=== PATIENT | female | born 1995 | race Caucasian/White ===

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

== ENCOUNTER 2017-04-03 15:41 | Emergency (ER) | payer BC ==
[2017-04-03 15:52] VITALS: BP 132/63
--- NOTE | 2017-04-03 15:55 | UC ---
Complaint Female HPI - HPI Summary HPI Summary: 22 year old female presents with complains of urine frequency/urgency. - History Of Current Complaint Chief Complaint: UCGU Stated Complaint: UTI Time Seen by Provider: 04/03/17 15:54 Hx Obtained From: Patient Hx Last Menstrual Period: 03/16/2017 Onset/Duration: Sudden Onset Timing: Constant Severity Initially: Moderate Severity Currently: Moderate - Allergies/Home Medications Allergies/Adverse Reactions: Allergies Allergy/AdvReac Type Severity Reaction Status Date / Time Amoxicillin Allergy Hives Verified 04/03/17 15:47 Sulfa Antibiotics Allergy Hives Verified 04/03/17 15:47 PMH/Surg Hx/FS Hx/Imm Hx Previously Healthy: Yes Other History Of: Negative For: HIV, Hepatitis B, Hepatitis C, Anticoagulant Therapy - Surgical History Surgical History: Yes Surgery Procedure, Year, and Place: LEFT ELBOW RECON, TUBES IN EARS, ELBOW PINS , RIGHT 5TH FINGER SURGERY - Family History Known Family History: Positive: Cardiac Disease, Hypertension, Diabetes, Respiratory Disease - Social History Alcohol Use: None Substance Use Type: None Smoking Status (MU): Light Every Day Tobacco Smoker Type: Cigarettes Amount Used/How Often: 4 CIG/DAY Have You Smoked in the Last Year: No Household Exposure Type: Cigarettes - Immunization History Most Recent Influenza Vaccination: Vaccination Up to Date: Yes Review of Systems Constitutional: Negative Skin: Negative Eyes: Negative ENT: Negative Respiratory: Negative Cardiovascular: Negative Gastrointestinal: Negative Genitourinary: Dysuria, Frequency, Urgency Motor: Negative Neurovascular: Negative Musculoskeletal: Negative Neurological: Negative Psychological: Negative All Other Systems Reviewed And Are Negative: Yes Physical Exam Triage Information Reviewed: Yes Vital Signs: Initial Vital Signs Temp 36.8 C 04/03/17 15:48 Pulse 100 04/03/17 15:48 Resp 16 04/03/17 15:48 BP 132/63 04/03/17 15:48 Pulse Ox 100 04/03/17 15:48 Eye Exam: Normal ENT Exam: Normal Dental Exam: Normal Neck exam: Normal Neck: Positive: 1 Respiratory Exam: Normal Cardiovascular Exam: Normal Abdominal Exam: Normal Musculoskeletal Exam: Normal Neurological Exam: Normal Psychological Exam: Normal Skin Exam: Normal Complaint Female Dx - Differential Dx/Diagnosis Provider Diagnoses: urinary frequnecy. urinary urgency. dysuria Discharge - Discharge Plan Condition: Stable Disposition: HOME Prescriptions: Nitrofurantoin Monohyd Macro [Macrobid] 100 mg PO BID #14 cap Patient Education Materials: Urinary Tract Infection in Women (ED), Dysuria (ED ) Referrals: Mehul Grewal MD [Primary Care Provider] -
--- NOTE | 2017-04-05 16:30 | ED ---
Progress - Progress Note Progress Note: UCX (-). CAN STOP ABX. Course/Dx - Diagnoses Provider Diagnoses: Dysuria
== END 2017-04-03 16:15 | disposition home or self-care (01) ==
LOC: UCEAST 15:41
DX: R30.0 Dysuria (principal); R35.0 Frequency of micturition; R39.15 Urgency of urination; Z32.02 Encounter for pregnancy test, result negative; F17.210 Nicotine dependence, cigarettes, uncomplicated; Z88.1 Allergy status to other antibiotic agents; Z88.0 Allergy status to penicillin
CPT/HCPCS: 81003; 84702; 87086; 99212; G0463

== ENCOUNTER 2017-07-11 10:16 | Emergency (ER) | payer BC ==
[2017-07-11] MEDS ORDERED: Ketorolac INJ* 30 MG/ML 1 ML VIAL IV PUSH ONE (13:09)
[2017-07-11] MEDS ORDERED: NS 0.9% 1000 ML* 1,000 ML IV ONE (13:09)
[2017-07-11 13:12] LABS: ABS Basophils 0 10^3/ul (0-0.2); ABS Eosinophils 0 10^3/ul (0-0.6); ABS Lymphocytes 1.9 10^3/ul (1.0-4.8); ABS Monocytes 0.5 10^3/ul (0-0.8); ABS Neutrophils 5.8 10^3/ul (1.5-7.7); ABS Nucleated RBC 0 10^3/ul; Eosinophil % 0.4 % (0-6); Hematocrit 40 % (35-47); Hemoglobin 13.6 g/dl (12.0-16.0); Lymphocyte % 23.1 % (25-47); Mean Corpuscular HGB Conc 34 g/dl (31-36); Mean Corpuscular Hemoglobin 29 pg (27-31); Mean Corpuscular Volume 85 fL (80-97); Mean Platelet Volume 8 um3 (7.4-10.4); Nucleated Red Blood Cells % 0; Platelet Count 306 10^3/ul (150-450); Red Blood Count 4.75 10^6/ul (4.0-5.4); Red Cell Distribution Width 13 % (10.5-15); White Blood Count 8.2 10^3/ul (3.5-10.8)
[2017-07-11 13:25] LABS: EGFR Non-African American 122.7 (>60)
[2017-07-11 13:31] LABS: INR 1.02 (0.77-1.02)
[2017-07-11 13:48] LABS: Urine Appearance Cloudy; Urine Blood Negative (Negative); Urine Color Yellow; Urine Ketones Trace (Negative); Urine Protein Negative (Negative); Urine Specific Gravity 1.019 (1.010-1.030); Urine Urobilinogen Negative (Negative)
[2017-07-11] MEDS ORDERED: Ondansetron INJ* 2 MG/ML VIAL IV ONE (15:04)
--- NOTE | 2017-07-11 15:22 | RAD ---
INDICATION: Right-sided pelvic pain. COMPARISON: Comparison is made with a prior CT of the abdomen and pelvis from October 14, 2005. TECHNIQUE: Multiple real-time transabdominal and transvaginal images of the pelvis were obtained. FINDINGS: The uterus is normal in size, shape and echogenicity. The uterus measured 6.1 x 3.6 x 4.1 cm. The endometrial echo measured 1.0 cm in thickness. The right ovary measured 4.0 x 2.6 x 2.2 cm. The left ovary is not visualized. There is a complex cystic and solid mass in the left adnexa measuring 10.0 x 9.0 x 10.8 cm. No free intraperitoneal fluid is seen. IMPRESSION: THERE IS A COMPLEX CYSTIC AND SOLID MASS PRESENT IN THE LEFT ADNEXAL REGION MEASURING UP TO 10.8 CM IN SIZE. RECOMMEND A CT OF THE ABDOMEN AND PELVIS WITH INTRAVENOUS AND ORAL CONTRAST.
[2017-07-11] MEDS ORDERED: Iohexol 300* (CONTRAST) 10 ML SDV IV ONE (15:54)
--- NOTE | 2017-07-11 18:15 | RAD ---
Indication: Pelvic pain. Contrast:Administered 145.2 ml of OMNIPAQUE 300 mg/ml CT of the abdomen and pelvis was performed after oral and IV contrast administration. Coronal and sagittal reconstructed images were obtained. Lung bases demonstrate no pleural fluid, nodules or masses. Heart is of normal size without evidence of pericardial effusion. Liver is normal in size. No focal lesions or intrahepatic ductal dilatation is noted. The gallbladder demonstrates no calcified gallstones. No pericholecystic fluid or wall thickening is identified. Spleen is normal in size. No adrenal lesions are noted. The kidneys demonstrate symmetric nephrograms without focal lesions. No retroperitoneal adenopathy is noted. Aorta and inferior vena cava are unremarkable. No dilated loops of bowel are noted. No hernias are noted. CT of the pelvis demonstrates normal appendix. No dilated loops of bowel are noted. There is a large left adnexal mass measuring 7.4 cm in length x 9.7 cm AP x 9.1 cm in width. There is a fluid component of fat component and a calcium component. Findings are consistent with a dermoid cyst. Urinary bladder is unremarkable. No hernias are noted. IMPRESSION: 7.4 x 9.7 x 9.1 cm mass in the left adnexa with fatty components, calcium components and probable solid components. Findings are consistent with a dermoid.
[2017-07-11 19:15] VITALS: BP 124/68
--- NOTE | 2017-07-13 07:43 | ED ---
Anup Jimenez Angela, scribed for Saurav Angelo MD on 07/11/17 at 1312 . Abdominal Pain/Female - HPI Summary HPI Summary: This pt is a 22 y/o female presenting to [facility] c/o RLQ abd pain upon waking up this morning at around 07:00. Pt notes associated nausea and diarrhea. She denies vomiting. Pt describes diarrhea as watery stool. LMP: June 20 2017. - History of Current Complaint Chief Complaint: EDAbdPain Stated Complaint: RT SIDED ABD PAIN Time Seen by Provider: 07/11/17 12:54 Hx Obtained From: Patient Hx Last Menstrual Period: 06/20/17 Onset/Duration: Lasting Hours, Still Present Timing: Hours Severity Currently: Moderate Pain Intensity: 5 Pain Scale Used: 0-10 Numeric Location: Discrete At: RLQ Radiates: No Aggravating Factor(s): Nothing Alleviating Factor(s): Nothing Associated Signs and Symptoms: Positive: Nausea, Diarrhea. Negative: Vomiting Allergies/Adverse Reactions: Allergies Allergy/AdvReac Type Severity Reaction Status Date / Time Amoxicillin Allergy Hives Verified 07/11/17 12:40 Sulfa Antibiotics Allergy Hives Verified 07/11/17 12:40 PMH/Surg Hx/FS Hx/Imm Hx Endocrine/Hematology History: Denies: Hx Anticoagulant Therapy, Hx Diabetes, Hx Thyroid Disease Cardiovascular History: Denies: Hx Hypertension, Hx Pacemaker/ICD Respiratory History: Reports: Hx Asthma Denies: Hx Chronic Obstructive Pulmonary Disease (COPD), Hx Lung Cancer, Hx Pneumonia, Hx Pulmonary Embolism GI History: Denies: Hx Gall Bladder Disease, Hx Gastrointestinal Bleed, Hx Ulcer, Hx Urosepsis History: Denies: Hx Kidney Stones, Hx Renal Disease Sensory History: Denies: Hx Hearing Aid Neurological History: Denies: Hx Dementia, Hx Migraine, Hx Seizures, Hx Transient Ischemic Attacks (TIA) Psychiatric History: Reports: Hx Anxiety, Hx Depression - No treatment. Denies: Hx Panic Disorder, Hx Schizophrenia, Hx Bipolar Disorder - Surgical History Surgery Procedure, Year, and Place: LEFT ELBOW RECON, TUBES IN EARS, ELBOW PINS , RIGHT 5TH FINGER SURGERY Infectious Disease History: No Infectious Disease History: Denies: Hx Clostridium Difficile, Hx Hepatitis, Hx Human Immunodeficiency Virus (HIV), Hx of Known/Suspected MRSA, Hx Shingles, Hx Tuberculosis, Hx Known/ Suspected VRE, Hx Known/Suspected VRSA, History Other Infectious Disease, Traveled Outside the [place] in Last 30 Days - Family History Known Family History: Positive: Cardiac Disease, Hypertension, Diabetes, Respiratory Disease - Social History Alcohol Use: None Hx Substance Use: No Substance Use Type: Reports: None Hx Tobacco Use: Yes Smoking Status (MU): Light Every Day Tobacco Smoker Type: Cigarettes Amount Used/How Often: 4 CIG/DAY Have You Smoked in the Last Year: No Review of Systems Negative: Fever, Chills Eyes: Negative ENT: Negative Cardiovascular: Negative Positive: Abdominal Pain, Diarrhea, Nausea. Negative: Vomiting All Other Systems Reviewed And Are Negative: Yes Physical Exam - Summary Physical Exam Summary: VITAL SIGNS: Reviewed. GENERAL: Patient is a well-developed and nourished female who is lying comfortable in the stretcher. Patient is not in any acute respiratory distress. HEAD AND FACE: No signs of trauma. No ecchymosis, hematomas or skull depressions. No sinus tenderness. EYES: PERRLA, EOMI x 2, No injected conjunctiva, no nystagmus. EARS: Hearing grossly intact. Ear canals and tympanic membranes are within normal limits. MOUTH: Oropharynx within normal limits. NECK: Supple, trachea is midline, no adenopathy, no JVD, no carotid bruit, no c- spine tenderness, neck with full ROM. CHEST: Symmetric, no tenderness at palpation LUNGS: Clear to auscultation bilaterally. No wheezing or crackles. CVS: Regular rate and rhythm, S1 and S2 present, no murmurs or gallops appreciated. ABDOMEN: Soft, non-tender. No signs of distention. No masses palpated. Bowel sounds are normal. Right pelvic tenderness. Slight RLQ tenderness without rebound or guarding. EXTREMITIES: FROM in all major joints, no edema, no cyanosis or clubbing. NEURO: Alert and oriented x 3. No acute neurological deficits. Speech is normal and follows commands. SKIN: Dry and warm Triage Information Reviewed: Yes Vital Signs On Initial Exam: Initial Vitals Temp Pulse Resp BP Pulse Ox 98.6 F 102 20 133/74 98 07/11/17 10:36 07/11/17 10:36 07/11/17 10:36 07/11/17 10:36 07/11/17 10:36 Vital Signs Reviewed: Yes Diagnostics - Vital Signs Vital Signs Temp Pulse Resp BP Pulse Ox 07/11/17 10:36 98.6 F 102 20 133/74 98 - Laboratory Lab Results: Lab Results 07/11/17 07/11/17 07/11/17 Range/Units 12:56 12:56 12:56 WBC 8.2 (3.5-10.8) 10^3/ul RBC 4.75 (4.0-5.4) 10^6/ul Hgb 13.6 (12.0-16.0) g/dl Hct 40 (35-47) % MCV 85 (80-97) fL MCH 29 (27-31) pg MCHC 34 (31-36) g/dl RDW 13 (10.5-15) % Plt Count 306 (150-450) 10^3/ul MPV 8 (7.4-10.4) um3 Neut % (Auto) 70.4 (38-83) % Lymph % (Auto) 23.1 L (25-47) % [place] % (Auto) 5.7 (1-9) % Eos % (Auto) 0.4 (0-6) % Baso % (Auto) 0.4 (0-2) % Absolute Neuts (auto) 5.8 (1.5-7.7) 10^3/ul Absolute Lymphs (auto) 1.9 (1.0-4.8) 10^3/ul Absolute Monos (auto) 0.5 (0-0.8) 10^3/ul Absolute Eos (auto) 0 (0-0.6) 10^3/ul Absolute Basos (auto) 0 (0-0.2) 10^3/ul Absolute Nucleated RBC 0 10^3/ul Nucleated RBC % 0 INR (Anticoag Therapy) 1.02 (0.77-1.02) Sodium 136 (133-145) mmol/L Potassium 3.9 (3.5-5.0) mmol/L Chloride 104 (101-111) mmol/L Carbon Dioxide 24 (22-32) mmol/L Anion Gap 8 (2-11) mmol/L BUN 8 (6-24) mg/dL Creatinine 0.62 (0.51-0.95) mg/dL Est GFR ( Amer) 157.8 (>60) Est GFR (Non-Af Amer) 122.7 (>60) BUN/Creatinine Ratio 12.9 (8-20) Glucose 83 (70-100) mg/dL Lactic Acid (0.5-2.0) mmol/L Calcium 9.9 (8.6-10.3) mg/dL Magnesium 2.6 (1.9-2.7) mg/dL Total Bilirubin 0.40 (0.2-1.0) mg/dL AST 14 (13-39) U/L ALT 14 (7-52) U/L Alkaline Phosphatase 70 (34-104) U/L Total Creatine Kinase 41 (10-223) U/L C-Reactive Protein 5.35 H (< 5.00) mg/L Total Protein 7.1 (6.4-8.9) g/dL Albumin 4.1 (3.2-5.2) g/dL Globulin 3.0 (2-4) g/dL Albumin/Globulin Ratio 1.4 (1-3) Amylase 31 (29-103) U/L Lipase < 10 L (11.0-82.0) U/L Beta HCG, Quant < 0.60 mIU/mL Urine Color Urine Appearance Urine pH (5-9) Ur Specific [place] (1.010-1.030) Urine Protein (Negative) Urine Ketones (Negative) Urine Blood (Negative) Urine Nitrate (Negative) Urine Bilirubin (Negative) Urine Urobilinogen (Negative) Ur Leukocyte Esterase (Negative) Urine Glucose (Negative) 07/11/17 07/11/17 07/11/17 Range/Units 12:56 13:34 16:54 WBC (3.5-10.8) 10^3/ul RBC (4.0-5.4) 10^6/ul Hgb (12.0-16.0) g/dl Hct (35-47) % MCV (80-97) fL MCH (27-31) pg MCHC (31-36) g/dl RDW (10.5-15) % Plt Count (150-450) 10^3/ul MPV (7.4-10.4) um3 Neut % (Auto) (38-83) % Lymph % (Auto) (25-47) % [place] % (Auto) (1-9) % Eos % (Auto) (0-6) % Baso % (Auto) (0-2) % Absolute Neuts (auto) (1.5-7.7) 10^3/ul Absolute Lymphs (auto) (1.0-4.8) 10^3/ul Absolute Monos (auto) (0-0.8) 10^3/ul Absolute Eos (auto) (0-0.6) 10^3/ul Absolute Basos (auto) (0-0.2) 10^3/ul Absolute Nucleated RBC 10^3/ul Nucleated RBC % INR (Anticoag Therapy) (0.77-1.02) Sodium (133-145) mmol/L Potassium (3.5-5.0) mmol/L Chloride (101-111) mmol/L Carbon Dioxide (22-32) mmol/L Anion Gap (2-11) mmol/L BUN (6-24) mg/dL Creatinine (0.51-0.95) mg/dL Est GFR ( Amer) (>60) Est GFR (Non-Af Amer) (>60) BUN/Creatinine Ratio (8-20) Glucose (70-100) mg/dL Lactic Acid 0.7 0.8 (0.5-2.0) mmol/L Calcium (8.6-10.3) mg/dL Magnesium (1.9-2.7) mg/dL Total Bilirubin (0.2-1.0) mg/dL AST (13-39) U/L ALT (7-52) U/L Alkaline Phosphatase (34-104) U/L Total Creatine Kinase (10-223) U/L C-Reactive Protein (< 5.00) mg/L Total Protein (6.4-8.9) g/dL Albumin (3.2-5.2) g/dL Globulin (2-4) g/dL Albumin/Globulin Ratio (1-3) Amylase (29-103) U/L Lipase (11.0-82.0) U/L Beta HCG, Quant mIU/mL Urine Color Yellow Urine Appearance Cloudy Urine pH 5.0 (5-9) Ur Specific [place] 1.019 (1.010-1.030) Urine Protein Negative (Negative) Urine Ketones Trace H (Negative) Urine Blood Negative (Negative) Urine Nitrate Negative (Negative) Urine Bilirubin Negative (Negative) Urine Urobilinogen Negative (Negative) Ur Leukocyte Esterase Negative (Negative) Urine Glucose Negative (Negative) Result Diagrams: 07/11/17 12:56 07/11/17 12:56 Lab Statement: Any lab studies that have been ordered have been reviewed, and results considered in the medical decision making process. - CT Abdomen/Pelvis CT CT Interpretation: Positive (See Comments) - IMPRESSION: 7.4 x 9.7 x 9.1 cm mass in the left adnexa with fatty components, calcium components and probable solid components. Findings are consistent with a dermoid. Dr. Angelo has reviewed this radiology report. CT Interpretation Completed By: Radiologist - Ultrasound No standard instances Ultrasound Interpretation: Positive (See Comments) - Pelvic US IMPRESSION: There is a complex cystic and solid mass present in the left adnexal region measuring up to 10.8 CM in size. Recommend a CT of the abdomen and pelvis with intravenous and oral contrast. Dr. Angelo has reviewed this radiology report. Ultrasound Interpretation Completed By: Radiologist Re-Evaluation - Re-Evaluation First Eval Re-Evaluation Time: 15:43 Comment: I discussed US results with the pt. Will obtain a CT abdomen/pelvis. Second Eval Re-Evaluation Time: 18:43 Comment: I discussed the recommendations of Dr. Manuel with the pt. Abdominal Pain Fem Course/Dx - Course Course Of Treatment: This pt is a 22 y/o female presenting to [facility] c/o RLQ abd pain upon waking up this morning at around 07:00. Pt notes associated nausea and diarrhea. She denies vomiting. Pt describes diarrhea as watery stool. LMP: June 20 2017. Test results without any significant abnormalities. Urinalysis is negative for UTI. Pelvic US shows there is a complex cystic and solid mass present in the left adnexal region measuring up to 10.8 CM in size. Recommend a CT of the abdomen and pelvis with intravenous and oral contrast. CT abdomen/pelvis reveals 7.4 x 9.7 x 9.1 cm mass in the left adnexa with fatty components, calcium components and probable solid components. Findings are consistent with a dermoid. I discussed the pts case with Dr. Manuel, who recommends the pt to be discharged home and follow up with him sometime early this week. The pt was given IV fluids, Toradol, and Zofran and the symptoms have subsided. Pt feels better and rates her pain now 1/10 in severity. I offered the pt a pelvic exam but she declined. She would rather have a pelvic exam done by Dr. Manuel. Pt is hemodynamically stable, alert and oriented x3. - Diagnoses Differential Diagnosis: Positive: Appendicitis, Constipation, Diverticulitis, Ectopic , Ovarian Cyst, Renal Colic Provider Diagnoses: Pelvic mass - Provider Notifications Discussed Care Of Patient With: Jamey Manuel Time Discussed With Above Provider: 18:42 Instructed by Provider To: Other - I discussed pt care with Dr. Manuel, Manager Vehicle. Discharge - Discharge Plan Condition: Stable Disposition: HOME Prescriptions: HYDROcodone/ACETAMIN 5-325 MG* [Stout 5-325 TAB*] 1 tab PO Q6H PRN #12 tab MDD 4 PRN Reason: Pain Patient Education Materials: Pelvic Pain in Women (ED) Referrals: Mehul Grewal MD [Primary Care Provider] - Jamey Manuel MD [Medical Doctor] - Additional Instructions: Please follow up with Dr. Manuel, from [facility], this week. RETURN TO THE ED FOR ANY WORSENING SYMPTOMS. The documentation as recorded by the Anup huggins Angela accurately reflects the service I personally performed and the decisions made by me, Saurav Angelo MD.
== END 2017-07-11 19:15 | disposition home or self-care (01) ==
LOC: ED 10:16
DX: R19.04 Left lower quadrant abdominal swelling, mass and lump (principal); R11.0 Nausea; R19.7 Diarrhea, unspecified; Z32.02 Encounter for pregnancy test, result negative; J45.909 Unspecified asthma, uncomplicated; F41.9 Anxiety disorder, unspecified; F32.9 Major depressive disorder, single episode, unspecified; Z88.1 Allergy status to other antibiotic agents; Z88.2 Allergy status to sulfonamides; F17.210 Nicotine dependence, cigarettes, uncomplicated
CPT/HCPCS: 36415; 74177; 76830; 76856; 80053; 81003; 82150; 82550; 83605; 83690; 83735; 84702; 85025; 85610; 86140; 96361; 96374; 96375; 99284; J1885; J2405; Q9967

== ENCOUNTER 2017-07-22 11:25 | Observation (INO) | payer BC ==
[~2017-07-22 11:25] MED LIST: Buffered Lidocaine 0.9% SYRIN* 5 ML/SYR SYRINGE INTRADERM ONE; Dexamethasone IV* 4 MG/ML 1 ML (4 MG) IV SLOW PU ONE; Famotidine IV* 10 MG/ML 2 ML (20 mg) IV ONE; Levalbuterol 0.63MG/3ML NEB* UNIT OF USE INH ONE
[2017-07-22] MEDS ORDERED: Famotidine IV* 10 MG/ML 2 ML (20 mg) ONE (11:32)
[2017-07-22] MEDS ORDERED: Buffered Lidocaine 0.9% SYRIN* 5 ML/SYR SYRINGE ONE (11:32)
[2017-07-22] MEDS ORDERED: Levalbuterol 1.25MG/0.5ML NEB ONE (11:32)
[2017-07-22] MEDS ORDERED: Dexamethasone IV* 4 MG/ML 1 ML (4 MG) ONE (11:32)
[2017-07-22] MEDS ORDERED: Propofol* 10 MG/ML 20 ML BTL IV PUSH ONE (11:51)
[2017-07-22] MEDS ORDERED: fentaNYL* 50 MCG/ML 5 ML VIAL (250 MCG VIAL) ONE (11:51)
[2017-07-22] MEDS ORDERED: Ketorolac INJ* 30 MG/ML 1 ML VIAL ONE (11:51)
[2017-07-22] MEDS ORDERED: Ondansetron INJ* 2 MG/ML VIAL ONE ×2 (11:51→14:03)
[2017-07-22] MEDS ORDERED: Lidocaine 2% PF * 5 ML VIAL ONE (11:51)
[2017-07-22] MEDS ORDERED: Midazolam* 1 MG/ML 10 ML VIAL (10 MG) ONE (11:51)
[2017-07-22 12:01] LABS: ABS Basophils 0.1 10^3/ul (0-0.2); ABS Eosinophils 0.1 10^3/ul (0-0.6); ABS Lymphocytes 1.8 10^3/ul (1.0-4.8); ABS Monocytes 0.6 10^3/ul (0-0.8); ABS Neutrophils 4.5 10^3/ul (1.5-7.7); ABS Nucleated RBC 0 10^3/ul; Hematocrit 40 % (35-47); Hemoglobin 13.5 g/dl (12.0-16.0); Lymphocyte % 26.1 % (25-47); Mean Corpuscular HGB Conc 34 g/dl (31-36); Mean Corpuscular Hemoglobin 28 pg (27-31); Mean Corpuscular Volume 83 fL (80-97); Mean Platelet Volume 7 um3 (7.4-10.4); Nucleated Red Blood Cells % 0; Platelet Count 277 10^3/ul (150-450); Red Blood Count 4.83 10^6/ul (4.0-5.4); Red Cell Distribution Width 13 % (10.5-15)
[2017-07-22] MEDS ORDERED: DiMENhydriNATE IV* 50 MG/ML VIAL IV PUSH PRN (12:09)
[2017-07-22] MEDS ORDERED: oxyCODONE/Acetamin 5/325 MG* TAB PO PRN (12:09)
[2017-07-22] MEDS ORDERED: Naloxone* 0.4 MG/ML 1 ML VIAL IV PRN (12:09)
[2017-07-22] MEDS ORDERED: HYDROmorphone INJ* 1 MG/ML CARPUJECT SYRINGE IV PRN ×2 (12:09→15:43)
[2017-07-22] MEDS ORDERED: Ondansetron INJ* 2 MG/ML VIAL IV PRN ×2 (12:09→15:43)
[2017-07-22] MEDS ORDERED: Scopolamine 1.5 mg* PATCH TRANSDERM PRN (12:09)
[2017-07-22] MEDS ORDERED: Atracurium* 10 MG/ML 10 ML VIAL ONE (12:19)
[2017-07-22] MEDS ORDERED: Bupivacaine 0.5% SDV PF* 10-30ML VIAL ONE (12:25)
[2017-07-22] MEDS ORDERED: fentaNYL* 50 MCG/ML 2 ML VIAL (100 MCG VIAL) ONE ×3 (13:01→14:34)
[2017-07-22] MEDS ORDERED: Glycopyrrolate IV* 0.2 MG/ML 1 ML VIAL ONE (13:20)
[2017-07-22] MEDS ORDERED: Scopolamine 1.5 mg* PATCH ONE (14:03)
[2017-07-22] MEDS: fentaNYL* 50 MCG/ML 2 ML VIAL (100 MCG VIAL) IV PRN ×3 (14:06→14:35)
[2017-07-22] MEDS: oxyCODONE/Acetamin 5/325 MG* TAB PO PRN ×2 (15:59→20:01)
[2017-07-22] MEDS: Ibuprofen TAB* 600 MG PO SCH ×2 (17:18→22:21)
[2017-07-22] MEDS ORDERED: HYDROmorphone INJ* 2 MG/ML CARPUJECT SYRINGE ONE (19:02)
[2017-07-22] MEDS: LR @ 40 MLS/HR IV SCH (19:05)
[2017-07-22 19:19] LABS: Hematocrit 39 % (35-47)
--- NOTE | 2017-07-23 00:01 | OP ---
OPERATIVE REPORT: DATE OF OPERATION: 07/22/17 DATE OF : 89 SURGEON: Armin Mayer MD. EKG TECH: Dr. Manuel. ANESTHESIA: General endotracheal tube. PRE-OP DIAGNOSES: Left dermoid cyst and pelvic pain. POST-OP DIAGNOSES: Left dermoid cyst and pelvic pain. OPERATIVE PROCEDURES: Laparotomy, left dermoid cystectomy. ESTIMATED BLOOD LOSS: 50 cc. SPECIMEN: Includes dermoid cyst. FINDINGS: On laparotomy, the uterus appeared normal. Both fallopian tubes appeared normal. The right ovary appeared normal. The left ovary was approximately 10 x 10, distended with what looks like a typical dermoid cyst. DESCRIPTION OF PROCEDURE: The patient identified, procedure identified as a laparotomy, left ovarian cystectomy. The patient was taken to the operating room, prepped and draped in the usual fashion in the supine position under general anesthesia. A mini laparotomy incision was made in the Pfannenstiel area_ 2 cm above the pubic symphysis in the midline, approximately 5 cm in length. It was carried down through fat, fascia and peritoneum. The above ovary was identified and Andrew retractor was placed. A pursestring suture was placed in the ovary. A small window was made and the cyst contents were suctioned out with minimal spill. The rest of the ovary was brought out through the incision once it had been decompressed, and through blunt and sharp dissection the cyst was dissected from the ovarian tunica. At the end of the dissection, a small area of bleeding was cauterized using unipolar cautery and suture ligated using 3-0 Polysorb. A pursestring Polysorb suture was used to basically close the space in the ovary. Once good hemostasis had been achieved, this was brought out and a baseball stitch was applied to close the tunica completely. Good hemostasis again verified. Both ovaries were inspected. Copious irrigation was utilized. Warm saline irrigation was utilized and suctioned out. Good hemostasis was again verified. The Andrew was removed. The fascia was then closed using 0 Polysorb in a running fashion. Good hemostasis was achieved in the subcutaneous tissue. Copious irrigation was utilized and suctioned out. The space was closed using 3-0 Polysorb and the skin was closed with 4-0 Monocryl in a subcuticular fashion. Steri- Strips were applied and the patient returned to recovery room in stable condition. All sponge and instrument counts were correct. [id number]/[facility] #: [id number] MTDPankaj
[2017-07-23] MEDS: oxyCODONE/Acetamin 5/325 MG* TAB PO PRN ×4 (01:20→15:55)
[2017-07-23] MEDS: LR @ 40 MLS/HR IV SCH (03:06)
[2017-07-23] MEDS: Ibuprofen TAB* 600 MG PO SCH ×2 (04:36→11:50)
[2017-07-23 15:36] VITALS: BP 125/47
[2017-07-25] MEDS ORDERED: Scopolamine PATCH Remove* 1 NOTE MISC PATCH OFF ONE (14:00)
== END 2017-07-23 16:30 | disposition home or self-care (01) ==
LOC: OR 11:25 → SSU 15:23
PROVIDERS: ADMIT Obstetrics & Gynecology; ATTEND Obstetrics & Gynecology
DX: D27.1 Benign neoplasm of left ovary (principal); R10.31 Right lower quadrant pain; R10.2 Pelvic and perineal pain; Z72.0 Tobacco use
CPT/HCPCS: 36415; 81025; 85014; 85018; 85025; 86850; 86900; 86901; 94760; 96374; 96375; A9270-GY; G0378; J1100; J1170; J1885; J2250; J2405; J2704; J3010; J7614

== ENCOUNTER 2017-10-28 10:25 | Emergency (ER) | payer SELFPAY ==
[2017-10-28] MEDS ORDERED: Ketorolac INJ* 60 MG/2 ML VIAL IM ONE (11:38)
[2017-10-28] MEDS ORDERED: LORazepam TAB(*) 1 MG PO ONE (11:38)
[2017-10-28 13:51] VITALS: BP 139/98
--- NOTE | 2017-10-28 21:26 | ED ---
Levar Jimenez Natalie, scribed for Gibson Sheppard MD on 10/28/17 at 1144 . Back Pain - HPI Summary HPI Summary: The pt is a 22 y/o F presenting to the ED c/o mid thoracic back pain after lifting at work this morning. The pain is rated 7/10 in severity. The pain is aggravated by breathing, walking, lifting her arms, and sitting down. 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 She has hx of similar episodes of back injuries and asthma. - History of Current Complaint Chief Complaint: EDBackInjuryPain Stated Complaint: BACK PAIN Time Seen by Provider: 10/28/17 11:35 Hx Obtained From: Patient Hx Last Menstrual Period: 06/20/17 Onset/Duration: Sudden Onset, Still Present Onset/Duration: Started Minutes Ago Timing: Constant Back Pain Location: Is Discrete @ - mid-thoracic spine Severity Initially: Severe Severity Currently: Severe Pain Intensity: 7 Pain Scale Used: 0-10 Numeric Aggravating Symptom(s): Movement, Lifting, Walking Alleviating Symptom(s): Nothing - Allergies/Home Medications Allergies/Adverse Reactions: Allergies Allergy/AdvReac Type Severity Reaction Status Date / Time Penicillins Allergy Hives Verified 10/28/17 10:32 Sulfa (Sulfonamide Allergy Hives Verified 10/28/17 10:32 Antibiotics) PMH/Surg Hx/FS Hx/Imm Hx Endocrine/Hematology History: Denies: Hx Anticoagulant Therapy, Hx Diabetes, Hx Thyroid Disease Cardiovascular History: Denies: Hx Hypertension, Hx Pacemaker/ICD Respiratory History: Reports: Hx Asthma - prn inhaler Denies: Hx Chronic Obstructive Pulmonary Disease (COPD), Hx Lung Cancer, Hx Pneumonia, Hx Pulmonary Embolism GI History: Denies: Hx Gall Bladder Disease, Hx Gastrointestinal Bleed, Hx Ulcer, Hx Urosepsis History: Reports: Other Problems/Disorders - ovarian cyst Denies: Hx Kidney Stones, Hx Renal Disease Sensory History: Reports: Hx Contacts or Glasses - glasses Denies: Hx Hearing Aid Opthamlomology History: Reports: Hx Contacts or Glasses - glasses Neurological History: Reports: Hx Migraine - no meds Denies: Hx Dementia, Hx Seizures, Hx Transient Ischemic Attacks (TIA) Psychiatric History: Reports: Hx Anxiety - no meds, Hx Depression - no meds Denies: Hx Panic Disorder, Hx Schizophrenia, Hx Bipolar Disorder - Surgical History Surgery Procedure, Year, and Place: left elbow fx with hardware at 7yrs old [facility]. bilateral myringotomy as child [facility]. right 5th finger nailbed repair 2016 [facility] Hx Anesthesia Reactions: No Infectious Disease History: No Infectious Disease History: Denies: Hx Clostridium Difficile, Hx Hepatitis, Hx Human Immunodeficiency Virus (HIV), Hx of Known/Suspected MRSA, Hx Shingles, Hx Tuberculosis, Hx Known/ Suspected VRE, Hx Known/Suspected VRSA, History Other Infectious Disease, Traveled Outside the [place] in Last 30 Days - Family History Known Family History: Positive: Cardiac Disease, Hypertension, Diabetes, Respiratory Disease - Social History Alcohol Use: None Hx Substance Use: No Substance Use Type: Reports: None Hx Tobacco Use: Yes Smoking Status (MU): Light Every Day Tobacco Smoker Type: Cigarettes Amount Used/How Often: 1/2 ppd for 4 yrs Have You Smoked in the Last Year: No Review of Systems Negative: Fever Positive: Decreased ROM, Other - mid-thoracic back pain All Other Systems Reviewed And Are Negative: Yes Physical Exam - Summary Physical Exam Summary: Appearance: The patient is well-nourished in no acute distress and in no acute pain. Skin: The skin is warm and dry and skin color reflects adequate perfusion. HEENT: The head is normocephalic and atraumatic. The pupils are equal and reactive. The conjunctivae are clear and without drainage. Nares are patent and without drainage. Mouth reveals moist mucous membranes and the throat is without erythema and exudate. The external ears are intact. The ear canals are patent and without drainage. The tympanic membranes are intact. Neck: the neck is supple with full range of motion and non-tender. There are no carotid bruits. There is no neck vein distension. Respiratory: Chest is non-tender. Lungs are clear to auscultation and breath sounds are symmetrical and equal. Cardiovascular: Heart is regular rate and rhythm. There is no murmur or rub auscultated. There is no peripheral edema and pulses are symmetrical and equal. Abdomen: The abdomen is soft and non-tender. There are normal bowel sounds heard in all four quadrants and there is no organomegaly palpated. Musculoskeletal: There is back tenderness in the lower paradorsal area. Extremities are non-tender with full range of motion. There is good capillary refill. There is no peripheral edema or calf tenderness elicited. Neurological: Patient is alert and oriented to person, place and time. The patient has symmetrical motor strength in all four extremities. Cranial nerves are grossly intact. Deep tendon reflexes are symmetrical and equal in all four extremities. Psychiatric: The patient has an appropriate affect and does not exhibit any anxiety or depression. Triage Information Reviewed: Yes Vital Signs On Initial Exam: Initial Vitals Temp Pulse Resp BP Pulse Ox 99.9 F 103 15 131/85 97 10/28/17 10:30 10/28/17 10:30 10/28/17 10:30 10/28/17 10:30 10/28/17 10:30 Vital Signs Reviewed: Yes Diagnostics - Vital Signs Vital Signs Temp Pulse Resp BP Pulse Ox 10/28/17 10:30 99.9 F 103 15 131/85 97 - Laboratory Lab Statement: Any lab studies that have been ordered have been reviewed, and results considered in the medical decision making process. Re-Evaluation - Re-Evaluation First Eval Re-Evaluation Time: 13:25 Change: Improved Comment: The pt's back pain has gotten better, but she is still sore. The pt will be discharged home. She is agreeable with this plan. Back Pain Course/Dx - Course Course Of Treatment: Ms. 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 Now it hurts to move or breathe. She was treated conservatively with ativan as muscle relaxer and ketorolac and got a lot of relief. - Diagnoses Provider Diagnoses: Back strain Discharge - Sign-Out/Discharge Documenting (check all that apply): Discharge/Admit/Transfer - Discharge Plan Condition: Stable Disposition: HOME Prescriptions: LORazepam TAB(*) [Ativan TAB(*)] 1 mg PO Q6H PRN #20 tab MDD 4 PRN Reason: Pain Forms: *Work Release Referrals: Mehul Grewal MD [Primary Care Provider] - 3 Days Additional Instructions: Please take Ativan as prescribed. Take Ibuprofen for pain as needed. Follow up with your primary care physician in 2-3 days. Return to the emergency department for any new or worsening symptoms. - Billing Disposition and Condition Condition: STABLE Disposition: HOME The documentation as recorded by the Levar huggins Natalie accurately reflects the service I personally performed and the decisions made by me, Gibson Sheppard MD.
== END 2017-10-28 13:49 | disposition home or self-care (01) ==
LOC: ED 10:25
DX: S29.012A Strain of muscle and tendon of back wall of thorax, initial encounter (principal); X58.XXXA Exposure to other specified factors, initial encounter; Y93.F2 Activity, caregiving, lifting; Y92.29 Other specified public building as the place of occurrence of the external cause; Y99.0 Civilian activity done for income or pay; J45.909 Unspecified asthma, uncomplicated; G43.909 Migraine, unspecified, not intractable, without status migrainosus; F41.9 Anxiety disorder, unspecified; F32.9 Major depressive disorder, single episode, unspecified; Z88.0 Allergy status to penicillin; Z88.2 Allergy status to sulfonamides; F17.210 Nicotine dependence, cigarettes, uncomplicated
CPT/HCPCS: 96372; 99282; A9270-GY; J1885

== ENCOUNTER 2018-02-05 08:42 | Emergency (ER) | payer BC, OTHER ==
[2018-02-05] MEDS ORDERED: Ondansetron INJ* 2 MG/ML VIAL IV ONE (09:31)
[2018-02-05] MEDS ORDERED: D5NS 0.9% 1000 ML BAG* 1,000 ML IV SCH (10:00)
--- NOTE | 2018-02-05 10:22 | UC ---
General HPI - HPI Summary HPI Summary: states 3 days ago had lunch and several hours after she started with vomiting and later, diarrhea. States that she is on her menstrual period and that she cannot district court judge the color of the urine but she has had urine output. She states she is very thirsty and has dry heaving occasionally. Her last BM was today. Stool is yellow. Patient states this is the third time she has nausea/vomiting and diarrhea this year. - History of Current Complaint Chief Complaint: UCGI Stated Complaint: VOMITING/DIARRHEA Time Seen by Provider: 02/05/18 09:21 Hx Obtained From: Patient Hx Last Menstrual Period: now Onset/Duration: Sudden Onset, Lasting Days Onset Severity: Moderate Current Severity: Moderate Pain Intensity: 2 Associated Signs & Symptoms: Positive: Diarrhea, Nausea, Vomiting - Allergy/Home Medications Allergies/Adverse Reactions: Allergies Allergy/AdvReac Type Severity Reaction Status Date / Time Penicillins Allergy Hives Verified 02/05/18 08:52 Sulfa (Sulfonamide Allergy Hives Verified 02/05/18 08:52 Antibiotics) PMH/Surg Hx/FS Hx/Imm Hx Previously Healthy: Yes Psychological History: Anxiety Other History Of: Negative For: HIV, Hepatitis B, Hepatitis C, Anticoagulant Therapy - Surgical History Surgical History: Yes Surgery Procedure, Year, and Place: left elbow fx with hardware at 7yrs old [facility]. bilateral myringotomy as child [facility]. right 5th finger nailbed repair 2016 [facility] - Family History Known Family History: Positive: Cardiac Disease, Hypertension, Diabetes, Respiratory Disease - Social History Alcohol Use: Rare Substance Use Type: None Smoking Status (MU): Former Smoker Type: Cigarettes Amount Used/How Often: 1/2 ppd for 4 yrs Have You Smoked in the Last Year: No Household Exposure Type: Cigarettes - Immunization History Most Recent Influenza Vaccination: 2017 Most Recent Pneumonia Vaccination: none Vaccination Up to Date: Yes Review of Systems Constitutional: Negative Skin: Negative Eyes: Negative ENT: Negative Respiratory: Negative Gastrointestinal: Vomiting, Diarrhea, Nausea Genitourinary: Negative Motor: Negative Neurovascular: Negative Musculoskeletal: Negative All Other Systems Reviewed And Are Negative: Yes Physical Exam Triage Information Reviewed: Yes Appearance: No Pain Distress, Ill-Appearing, Obese Vital Signs: Initial Vital Signs Temp 99.7 F 02/05/18 08:48 Pulse 88 02/05/18 08:48 Resp 12 02/05/18 08:48 BP 139/84 02/05/18 08:48 Pulse Ox 99 02/05/18 08:48 Vital Signs Reviewed: Yes Eyes: Positive: Conjunctiva Clear ENT: Positive: Hearing grossly normal, Pharynx normal Neck: Positive: Supple, Nontender, No Lymphadenopathy Respiratory: Positive: Chest non-tender, Lungs clear, Normal breath sounds, No respiratory distress Cardiovascular: Positive: RRR, No Murmur, Pulses Normal, Brisk Capillary Refill Abdomen Description: Positive: No Organomegaly, Soft, Other: - Equivocal Velasquez sign Bowel Sounds: Positive: Present Musculoskeletal: Positive: Strength Intact, ROM Intact, No Edema Course/Dx - Course Course Of Treatment: D5NS at bolus was given at along with Zofran IVP. Patient experienced improvement and nausea was controlled. Urine output was satisfactory and patient was instructed to start zofran ODT as needed and continue hydration. Patient advised to follow up with abdominal sonogram to evaluate liver and gallbladder and f/u with PCP - Differential Dx - Multi-Symptom Provider Diagnoses: Gastroenteritis. Dehydration Discharge - Sign-Out/Discharge Documenting (check all that apply): Patient Departure - Discharge Plan Condition: Good Disposition: HOME Prescriptions: Ondansetron ODT TAB* [Zofran 4 MG Odt TAB*] 4 mg PO Q8H PRN #20 tab.odt PRN Reason: Nausea Patient Education Materials: Gastroenteritis (ED), Acute Nausea and Vomiting ( ED) Referrals: [facility] [facility] [place] [facility] [Outside] No Primary Care Phys,NOPCP [Primary Care Provider] - - Billing Disposition and Condition Condition: GOOD Disposition: Home
[2018-02-05 10:59] VITALS: BP 107/50
== END 2018-02-05 11:07 | disposition home or self-care (01) ==
LOC: UCEAST 08:42
DX: K52.9 Noninfective gastroenteritis and colitis, unspecified (principal); E86.0 Dehydration; Z88.2 Allergy status to sulfonamides; Z88.0 Allergy status to penicillin
CPT/HCPCS: 96360; 96376; 99212; G0463; J2405

== ENCOUNTER 2018-02-05 21:05 | Emergency (ER) | payer BC ==
[2018-02-05] MEDS ORDERED: NS 0.9% 1000 ML* 1,000 ML IV ONE ×2 (22:04→23:30)
[2018-02-05] MEDS ORDERED: Ondansetron INJ* 2 MG/ML VIAL IV ONE (22:09)
[2018-02-05] MEDS ORDERED: Ketorolac INJ* 30 MG/ML 1 ML VIAL IV PUSH ONE (22:09)
[2018-02-05 22:21] LABS: ABS Basophils 0.1 10^3/ul (0-0.2); ABS Eosinophils 0.1 10^3/ul (0-0.6); ABS Lymphocytes 1.5 10^3/ul (1.0-4.8); ABS Monocytes 0.7 10^3/ul (0-0.8); ABS Neutrophils 6.5 10^3/ul (1.5-7.7); ABS Nucleated RBC 0 10^3/ul; Eosinophil % 0.6 % (0-6); Hematocrit 37 % (35-47); Hemoglobin 12.4 g/dl (12.0-16.0); Lymphocyte % 17.5 % (25-47); Mean Corpuscular HGB Conc 34 g/dl (31-36); Mean Corpuscular Hemoglobin 28 pg (27-31); Mean Corpuscular Volume 82 fL (80-97); Mean Platelet Volume 7.3 um3 (7.4-10.4); Nucleated Red Blood Cells % 0.3; Platelet Count 295 10^3/ul (150-450); Red Blood Count 4.46 10^6/ul (4.00-5.40); Red Cell Distribution Width 13 % (10.5-15); White Blood Count 8.8 10^3/ul (3.5-10.8)
[2018-02-05 22:44] LABS: EGFR Non-African American 51.3 (>60)
--- NOTE | 2018-02-05 23:36 | RAD ---
EXAM: US Abdomen Limited, Right Upper Quadrant CLINICAL HISTORY: 23 years old, female; Pain; Abdominal pain; Generalized; Additional info: Ruq pain TECHNIQUE: Real-time ultrasound of the right upper quadrant with image documentation. COMPARISON: [facility] US GALL BLADDER 2015-08-23 18:56 FINDINGS: Liver: The liver is mildly heterogeneously echogenic representing fatty infiltration. Liver measures 18.5 cm and is mildly enlarged. No intrahepatic bile duct dilation. Gallbladder: The gallbladder wall measures 2 mm and is not thickened. Common bile duct: The common bile duct measures 3 mm and is normal. The visualized pancreatic head and body is unremarkable. No stones. No dilation. Pancreas: See above. Right kidney: The right kidney measures 12.7 x 6.3 x 5.5 cm, and normal echogenicity. No hydronephrosis. No stones. IMPRESSION: Mild hepatomegaly with hepatic steatosis. R0
--- NOTE | 2018-02-06 00:08 | ED ---
GI/ HPI - HPI Summary HPI Summary: 23-year-old female presents with nausea vomiting diarrhea for the past 4 days. She states that today she developed right upper quadrant pain for the past day. States it is sharp in nature. She states started after she ate spaghetti. She states that she was seen in urgent care earlier today and given Zofran and fluids and was feeling better. She denies any blood in her stool. She denies any recent travel. No one else is sick. She denies eating anything different. No medical conditions. No vaginal discharge. No pain with urination. No frequency urgency or hematuria. No fevers. - History of Current Complaint Chief Complaint: EDAbdPain Time Seen by Provider: 02/05/18 22:03 Stated Complaint: ABD PAIN Hx Last Menstrual Period: now Pain Intensity: 5 - Additional Pertinent History Primary Care Physician: [id number] - Allergy/Home Medications Allergies/Adverse Reactions: Allergies Allergy/AdvReac Type Severity Reaction Status Date / Time Penicillins AdvReac Hives Verified 02/05/18 21:09 Sulfa (Sulfonamide AdvReac Hives Verified 02/05/18 21:09 Antibiotics) PMH/Surg Hx/FS Hx/Imm Hx Endocrine/Hematology History: Denies: Hx Anticoagulant Therapy, Hx Diabetes, Hx Thyroid Disease Cardiovascular History: Denies: Hx Hypertension, Hx Pacemaker/ICD Respiratory History: Reports: Hx Asthma - prn inhaler Denies: Hx Chronic Obstructive Pulmonary Disease (COPD), Hx Lung Cancer, Hx Pneumonia, Hx Pulmonary Embolism GI History: Denies: Hx Gall Bladder Disease, Hx Gastrointestinal Bleed, Hx Ulcer, Hx Urosepsis History: Reports: Other Problems/Disorders - ovarian cyst Denies: Hx Kidney Stones, Hx Renal Disease Sensory History: Reports: Hx Contacts or Glasses - glasses Denies: Hx Hearing Aid Opthamlomology History: Reports: Hx Contacts or Glasses - glasses Neurological History: Reports: Hx Migraine - no meds Denies: Hx Dementia, Hx Seizures, Hx Transient Ischemic Attacks (TIA) Psychiatric History: Reports: Hx Anxiety - no meds, Hx Depression - no meds Denies: Hx Panic Disorder, Hx Schizophrenia, Hx Bipolar Disorder - Surgical History Surgery Procedure, Year, and Place: left elbow fx with hardware at 7yrs old [facility] [place]. bilateral myringotomy as child [facility] [place]. right 5th finger nailbed repair 2016 [facility] [place] Hx Anesthesia Reactions: No Infectious Disease History: No Infectious Disease History: Denies: Hx Clostridium Difficile, Hx Hepatitis, Hx Human Immunodeficiency Virus (HIV), Hx of Known/Suspected MRSA, Hx Shingles, Hx Tuberculosis, Hx Known/ Suspected VRE, Hx Known/Suspected VRSA, History Other Infectious Disease, Traveled Outside the [place] in Last 30 Days - Family History Known Family History: Positive: Cardiac Disease, Hypertension, Diabetes, Respiratory Disease - Social History Alcohol Use: Rare Hx Substance Use: No Substance Use Type: Reports: None Hx Tobacco Use: Yes Smoking Status (MU): Former Smoker Type: Cigarettes Amount Used/How Often: 1/2 ppd for 4 yrs Have You Smoked in the Last Year: No Review of Systems Negative: Fever Negative: Chest Pain Negative: Shortness Of Breath Positive: Abdominal Pain, Vomiting, Diarrhea, Nausea All Other Systems Reviewed And Are Negative: Yes Physical Exam Triage Information Reviewed: Yes Vital Signs On Initial Exam: Initial Vitals Temp Pulse Resp BP Pulse Ox 99.8 F 88 19 158/90 97 02/05/18 21:06 02/05/18 21:06 02/05/18 21:06 02/05/18 21:06 02/05/18 21:06 Vital Signs Reviewed: Yes Appearance: Positive: Well-Appearing Skin: Positive: Warm, Dry Head/Face: Positive: Normal Head/Face Inspection Eyes: Positive: Normal, Conjunctiva Clear ENT: Positive: Pharynx normal Respiratory/Lung Sounds: Positive: Clear to Auscultation, Breath Sounds Present Cardiovascular: Positive: Normal, RRR Abdomen Description: Positive: Soft, Other: - tenderness RUQ Bowel Sounds: Positive: Present Musculoskeletal: Positive: Normal Neurological: Positive: Normal Psychiatric: Positive: Normal Diagnostics - Vital Signs Vital Signs Temp Pulse Resp BP Pulse Ox 02/05/18 23:21 61 124/65 98 02/05/18 23:00 60 99 02/05/18 22:29 74 126/100 98 02/05/18 21:06 99.8 F 88 19 158/90 97 - Laboratory Lab Results: Lab Results 02/05/18 02/05/18 Range/Units 22:15 22:15 WBC 8.8 (3.5-10.8) 10^3/ul RBC 4.46 (4.00-5.40) 10^6/ul Hgb 12.4 (12.0-16.0) g/dl Hct 37 (35-47) % MCV 82 (80-97) fL MCH 28 (27-31) pg MCHC 34 (31-36) g/dl RDW 13 (10.5-15) % Plt Count 295 (150-450) 10^3/ul MPV 7.3 L (7.4-10.4) um3 Neut % (Auto) 73.6 (38-83) % Lymph % (Auto) 17.5 L (25-47) % [place] % (Auto) 7.7 H (0-7) % Eos % (Auto) 0.6 (0-6) % Baso % (Auto) 0.6 (0-2) % Absolute Neuts (auto) 6.5 (1.5-7.7) 10^3/ul Absolute Lymphs (auto) 1.5 (1.0-4.8) 10^3/ul Absolute Monos (auto) 0.7 (0-0.8) 10^3/ul Absolute Eos (auto) 0.1 (0-0.6) 10^3/ul Absolute Basos (auto) 0.1 (0-0.2) 10^3/ul Absolute Nucleated RBC 0 10^3/ul Nucleated RBC % 0.3 Sodium 140 (135-145) mmol/L Potassium 3.4 L (3.5-5.0) mmol/L Chloride 105 (101-111) mmol/L Carbon Dioxide 26 (22-32) mmol/L Anion Gap 9 (2-11) mmol/L BUN 14 (6-24) mg/dL Creatinine 1.31 H (0.51-0.95) mg/dL Est GFR ( Amer) 62.0 (>60) Est GFR (Non-Af Amer) 51.3 (>60) BUN/Creatinine Ratio 10.7 (8-20) Glucose 100 (70-100) mg/dL Calcium 8.9 (8.6-10.3) mg/dL Total Bilirubin 0.50 (0.2-1.0) mg/dL AST 11 L (13-39) U/L ALT 12 (7-52) U/L Alkaline Phosphatase 72 (34-104) U/L C-Reactive Protein 20.34 H (<8.01) mg/L Total Protein 7.3 (6.4-8.9) g/dL Albumin 3.9 (3.2-5.2) g/dL Globulin 3.4 (2-4) g/dL Albumin/Globulin Ratio 1.1 (1-3) Lipase 10 L (11.0-82.0) U/L Beta HCG, Quant < 0.60 mIU/mL Result Diagrams: 02/05/18 22:15 02/05/18 22:15 Lab Statement: Any lab studies that have been ordered have been reviewed, and results considered in the medical decision making process. - Ultrasound No standard instances Ultrasound Interpretation: No Acute Changes Ultrasound Interpretation Completed By: Radiologist PAULA Course/Dx - Course Course Of Treatment: 23-year-old female presents with nausea vomiting diarrhea for the past 4 days. She states that today she developed right upper quadrant pain for the past day. States it is sharp in nature. She states started after she ate spaghetti. She states that she was seen in urgent care earlier today and given Zofran and fluids and was feeling better. She denies any blood in her stool. She denies any recent travel. No one else is sick. She denies eating anything different. No medical conditions. No vaginal discharge. No pain with urination. No frequency urgency or hematuria. No fevers. on exam tenderness RUQ. Labs within normal limits. CRP elevated. gallbladder ultrasound normal. Explained likely gastroenteritis. Patient has nausea medication. Told to continue with medication and encourage fluids. Patient understands and agrees with plan. - Diagnoses Differential Diagnoses - Female: Gall Bladder Disease, Gastroenteritis (Viral), Gastroenteritis (Bacterial) Provider Diagnoses: Abdominal pain, Nausea vomiting and diarrhea Discharge - Sign-Out/Discharge Documenting (check all that apply): Patient Departure - Discharge Plan Condition: Good Disposition: HOME Patient Education Materials: Gastroenteritis (ED) Referrals: No Primary Care Phys,NOPCP [Primary Care Provider] - Additional Instructions: Can take Zofran every 6 hours as needed for nausea Drink small amounts of fluid as tolerated When able to eat follow BRAT diet: Bananas, rice, applesauce, toast Take ibuprofen or Tylenol for pain as needed every 6 hours est care with primary Return to ED if develop any new or worsening symptoms - Billing Disposition and Condition Condition: GOOD Disposition: Home
[2018-02-06 00:30] VITALS: BP 104/61
== END 2018-02-06 00:32 | disposition home or self-care (01) ==
LOC: ED 21:05
DX: R11.2 Nausea with vomiting, unspecified (principal); R19.7 Diarrhea, unspecified; Z87.891 Personal history of nicotine dependence; R10.9 Unspecified abdominal pain
CPT/HCPCS: 36415; 76705; 80053; 83690; 84702; 85025; 86140; 96374; 96375; 99284; J1885; J2405

== ENCOUNTER 2018-03-12 10:25 | Emergency (ER) | payer BC ==
[2018-03-12 10:32] VITALS: BP 121/69
--- NOTE | 2018-03-12 10:43 | UC ---
Skin Complaint HPI - HPI Summary HPI Summary: This patient is a 23 year old F presenting to [facility] accompanied by a younger male with a chief complaint of a open wound. Pt states she had a blackhead in her left hip crease that she popped a few days ago. Yesterday she noticed it became bigger, red, and it had minimal drainage. The patient rates the pain 10/ 10 in severity. Patient denies fever and chills. She states no one in her family has lesion no do animals in her house hold. - History of Current Complaint Chief Complaint: UCSkin Time Seen by Provider: 03/12/18 10:26 Stated Complaint: WOUND CHECK Hx Obtained From: Patient Hx Last Menstrual Period: 02/27/18 Onset/Duration: Lasting Days, Still Present Timing: Constant Onset Severity: Severe Current Severity: Severe Pain Intensity: 10 Pain Scale Used: 0-10 Numeric Location: Other - left hip crease Character: Pain Associated Signs & Symptoms: Positive: Negative - fever chills - Allergy/Home Medications Allergies/Adverse Reactions: Allergies Allergy/AdvReac Type Severity Reaction Status Date / Time Penicillins AdvReac Hives Verified 03/12/18 10:32 Sulfa (Sulfonamide AdvReac Hives Verified 03/12/18 10:32 Antibiotics) Home Medications: Home Medications LORazepam [Ativan 1 MG TAB] 1 mg PO 03/12/18 [History] Review of Systems Constitutional: Negative - fever and chills Skin: Other - open wound All Other Systems Reviewed And Are Negative: Yes PMH/Surg Hx/FS Hx/Imm Hx Respiratory History: Asthma Other History Of: Negative For: HIV, Hepatitis B, Hepatitis C, Anticoagulant Therapy - Surgical History Surgical History: Yes Surgery Procedure, Year, and Place: left elbow fx with hardware at 7yrs old [facility] [place] as [place] [facility] [place]. right 5th finger nailbed [place] [facility] [place] - Family History Known Family History: Positive: Cardiac Disease, Hypertension, Diabetes, Respiratory Disease - Social History Alcohol Use: Occasionally Substance Use Type: None Smoking Status (MU): Former Smoker Type: Cigarettes Amount Used/How Often: 1/2 ppd for 4 yrs Have You Smoked in the Last Year: No Household Exposure Type: Cigarettes - Immunization History Most Recent Influenza Vaccination: 2017 Most Recent Pneumonia Vaccination: none Vaccination Up to Date: Yes Physical Exam - Summary Physical Exam Summary: Appearance: Well appearing, no pain distress Skin: 1.5 cm circular lesion that looks like a ruptured abscess, some induration and thickening, it is unroofed Head/face: normal Eyes: EOMI, OLGA ENT: mucous membranes moist Neck: supple, non-tender Respiratory: CTA, breath sounds present Cardiovascular: RRR, pulses symmetrical Abdomen: non-tender, soft Bowel Sounds: present Musculoskeletal: normal, strength/ROM intact Neuro: normal, sensory motor intact, A&Ox3 Triage Information Reviewed: Yes Vital Signs: Initial Vital Signs Temp 97.9 F 03/12/18 10:26 Pulse 102 03/12/18 10:26 Resp 18 03/12/18 10:26 BP 121/69 03/12/18 10:26 Pulse Ox 99 03/12/18 10:26 Vital Signs Reviewed: Yes Course/Dx - Course Course Of Treatment: Previously ruptured, unroofed skin abscess with small amount of induration and no lymphangitic streaking. Treated with oral antibiotics. Given chlorhexidine soap to clean with. Dressed here with bacitracin and gauze. Discharged in good condition. - Differential Diagnoses - Skin Complaint Differential Diagnoses: Abscess, Cellulitis - Diagnoses Provider Diagnoses: Skin abscess Discharge - Sign-Out/Discharge Documenting (check all that apply): Patient Departure All imaging exams completed and their final reports reviewed: No Studies - Discharge Plan Condition: Improved Disposition: HOME Prescriptions: Clindamycin Cap(NF) [Clindamycin Cap 300 mg Cap(NF)] 300 mg PO TID #21 cap Patient Education Materials: Abscess (ED) Referrals: [facility] [Outside] [facility] [place] [facility] [Outside] Additional Instructions: Warm compresses on the area. Clean your skin with soap provided. Return if worse, fever, new symptoms or other concerns as discussed. - Billing Disposition and Condition Condition: IMPROVED Disposition: Home - Attestation Statements Document Initiated by Scribe: Yes Documenting Scribe: Jose Pagan Provider For Whom Seda is Documenting (Include Credential): Freeman Tobias MD Scribe Attestation: Jose Jimenez , scribed for Freeman Tobias MD on 03/12/18 at 1116. Scribe Documentation Reviewed: Yes Provider Attestation: The documentation as recorded by the Jose huggins accurately reflects the service I personally performed and the decisions made by Freeman chavez MD
== END 2018-03-12 10:45 | disposition home or self-care (01) ==
LOC: UCEAST 10:25
DX: L02.416 Cutaneous abscess of left lower limb (principal); Z88.0 Allergy status to penicillin; Z88.2 Allergy status to sulfonamides; Z87.891 Personal history of nicotine dependence
CPT/HCPCS: 99212; G0463

== ENCOUNTER 2018-05-05 16:53 | Emergency (ER) | payer BC ==
[2018-05-05 17:11] VITALS: BP 129/82
--- NOTE | 2018-05-05 17:38 | UC ---
Ear Complaint HPI - HPI Summary HPI Summary: 23 y/o female presents to the urgent care c/o left ear ache since yesterday. Pt states subjective low grade fever at home. She has taking Ibuprofen PO to alleviate symptoms. Pain is 4/10 dull and radiating below the ear. Pt states she had itchiness and then pain developed. Pt denies BUTLER, dizziness, tinnitus, SOB, URI, chest pain, abdominal pain, N/v/d. Pt is UTD w/ all vaccines for her age. - History of Current Complaint Chief Complaint: UCEar Stated Complaint: EAR ACHE Time Seen by Provider: 05/05/18 17:23 Hx Obtained From: Patient Hx Last Menstrual Period: [id number] Onset/Duration: Gradual Onset, Lasting Days - 1 day, Still Present, Worse Since - today Severity Initially: Mild Severity Currently: Mild Pain Intensity: 4 Pain Scale Used: 0-10 Numeric Aggravating Factors: Other - touch Alleviating Factors: OTC Meds Associated Signs/Symptoms: Positive: Hearing Loss - Allergies/Home Medications Allergies/Adverse Reactions: Allergies Allergy/AdvReac Type Severity Reaction Status Date / Time Penicillins AdvReac Hives Verified 05/05/18 17:12 Sulfa (Sulfonamide AdvReac Hives Verified 05/05/18 17:12 Antibiotics) PMH/Surg Hx/FS Hx/Imm Hx Previously Healthy: Yes Respiratory History: Asthma Other History Of: Negative For: HIV, Hepatitis B, Hepatitis C, Anticoagulant Therapy - Surgical History Surgical History: Yes Surgery Procedure, Year, and Place: left elbow fx with hardware at 7yrs old [facility] [place] bilateral myringotomy as child [facility] [place]. right 5th finger nailbed repair 2016 [facility] [place]. Abscess removed from ovary 2018 - Family History Known Family History: Positive: Cardiac Disease, Hypertension, Diabetes, Respiratory Disease - Social History Occupation: Student Lives: With Family Alcohol Use: Occasionally Substance Use Type: None Smoking Status (MU): Former Smoker Type: Cigarettes Amount Used/How Often: 1/2 ppd for 4 yrs Have You Smoked in the Last Year: No Household Exposure Type: Cigarettes - Immunization History Most Recent Influenza Vaccination: 2017 Most Recent Pneumonia Vaccination: none Vaccination Up to Date: Yes Review of Systems All Other Systems Reviewed And Are Negative: Yes Constitutional: Positive: Fever - subjective low grade fever at home Skin: Positive: Negative Eyes: Positive: Negative ENT: Positive: Ear Ache - left ear pain w/ itchiness and muffle Respiratory: Positive: Negative Cardiovascular: Positive: Negative Gastrointestinal: Positive: Negative Genitourinary: Positive: Negative Motor: Positive: Negative Neurovascular: Positive: Negative Musculoskeletal: Positive: Negative Neurological: Positive: Negative Psychological: Positive: Negative Is Patient Immunocompromised?: No Physical Exam - Summary Physical Exam Summary: Vital signs: reviewed General: well developed, well nourished female sitting in the examining table w/ o any apparent distress Skin: [place], warm and dry, no evidence of atopic dermatitis, psoriasis, seborrhea. HEENT: -Head: atraumatic, non tender; no scalp dermatitis. -Eyes: sclera and conjunctiva clear, PERRLA, EOMI -Ears: no pre- or postauricular lymphadenopathy or erythema; LF external ear canal with erythema some crusting discharge at the entrance of ear canal, mild pinna tenderness on palpation,LF TM WNL, Rt external ear canal clear and Rt TM WNL. No fluid level, No perforation. -Nose/Face: erythematous and edematous nasal mucosa with clear rhinorrhea, no frontal or maxillary sinus tender to palpation. -Mouth/Throat: Mucous membrane moist, posterior pharynx clear, no erythema or exudates. Neck: supple, FROM, nontender, no lymphadenopathy, no meningismus. Chest: Clear to auscultation, normal breath sounds Abd: soft, Bowel sounds active, Nontender. Back: no spinal or CVAT Neuro: A&O x4, GCS 15, no focal neuro deficits, normal behavior for age. Triage Information Reviewed: Yes Vital Signs: Initial Vital Signs Temp 98.7 F 05/05/18 17:04 Pulse 107 05/05/18 17:04 Resp 16 05/05/18 17:04 BP 129/82 05/05/18 17:04 Pulse Ox 99 05/05/18 17:04 Ear Complaint Course/Dx - Course Course Of Treatment: 23 y/o female presents to the urgent care c/o left ear ache since yesterday. Pt states subjective low grade fever at home. She has taking Ibuprofen PO to alleviate symptoms. Pain is 4/10 dull and radiating below the ear. Pt states she had itchiness and then pain developed. Pt denies BUTLER , dizziness, tinnitus, SOB, URI, chest pain, abdominal pain, N/v/d. Pt is UTD w / all vaccines for her age. Hx obtained. Pt w/ acute left otitis externa on examination. Pt with a left otitis externa on examination. Pt Rx Cortisporin otic drops and ibuprofen PO OTC to alleviate otalgia. If symptoms do not improve or worsen to return to the urgent care or f/u with PCP for further management. Pt understood and agreed with D/C instructions. - Differential Dx/Diagnosis Differential Diagnosis/HQI/PQRI: Cerumen Impaction, Otitis Externa, Otitis Media , Perforated TM Provider Diagnoses: 1- Left otitis externa. 2-Otalgia Discharge - Sign-Out/Discharge Documenting (check all that apply): Patient Departure - d/c home All imaging exams completed and their final reports reviewed: No Studies - Discharge Plan Condition: Stable Disposition: HOME Prescriptions: Ibuprofen TAB* [Motrin TAB* 600 MG] 600 mg PO Q6H PRN #30 tab PRN Reason: otalgia Neomyc/Polym/HC 1% OTIC SUSP* [Cortisporin Otic Susp 1%*] 4 drop LEFT EAR TID # 1 btl Patient Education Materials: Otitis Externa (ED) Referrals: [facility] [place] [Outside] - 3 Days Additional Instructions: 1-Please apply otic antibiotic on your LF ear as directed. 2-Take ibuprofen PO after meals for pain as directed . 3-If symptoms do not improve or worsen please f/u with your PCP in 3 days or return to the urgent care for further evaluation and treatment. - Billing Disposition and Condition Condition: STABLE Disposition: Home - Attestation Statements Provider Attestation: Per institutional requirements, I have reviewed the chart, however, I was not consulted specifically or made aware of this patient by the midlevel provider. I did not personally evaluate, interact with , or disposition this patient.
== END 2018-05-05 18:19 | disposition home or self-care (01) ==
LOC: UCEAST 16:53
DX: H60.92 Unspecified otitis externa, left ear (principal); H92.02 Otalgia, left ear; J45.909 Unspecified asthma, uncomplicated; Z88.0 Allergy status to penicillin; Z88.2 Allergy status to sulfonamides; Z87.891 Personal history of nicotine dependence
CPT/HCPCS: 99212; G0463

== ENCOUNTER 2018-07-22 11:18 | Emergency (ER) | payer BC ==
[2018-07-22 11:32] VITALS: BP 142/78
--- NOTE | 2018-07-23 06:01 | ED ---
Back Pain - HPI Summary HPI Summary: Patient is a 23-year-old female presenting to the ED with left upper back pain just under the scapula into the left of the spine. She states she injured this area at work approximately 8 months ago and reaggravated it recently. She states yesterday while lifting, the area began to cause discomfort again. She states she feels weak in the left arm intermittent numbness and tingling running from the shoulder to the fingertips. Pain is rated a 2/10, constant and aching. She denies any limitations with abduction or abduction of the shoulder. Denies any pain directly over the spine. - History of Current Complaint Chief Complaint: EDBackInjuryPain Stated Complaint: BACK PAIN/CANT LIFT LEFT ARM Time Seen by Provider: 07/22/18 11:43 Hx Obtained From: Patient Hx Last Menstrual Period: [id number] Onset/Duration: Sudden Onset Onset/Duration: Started Hours Ago Timing: Constant Back Pain Location: Is Discrete @ - left scapula pain with radiation to the L neck and arm Severity Initially: Moderate Severity Currently: Moderate Pain Intensity: 7 Pain Scale Used: 0-10 Numeric Character: Aching Aggravating Symptom(s): Movement, Lifting, Bending Alleviating Symptom(s): Rest, Position Associated Signs And Symptoms: Positive: Weakness, Numbness, Tingling. Negative : Swelling, Redness, Bruising, Bladder Incontinence, Bowel Incontinence, Weight Loss, Pain with Weight Bearing - Risk Factors AAA Risk Factors: Negative TAD Risk Factors: Negative Cauda Equina Risk Factors: Negative Epidural Abscess Risk Factors: Negative - Allergies/Home Medications Allergies/Adverse Reactions: Allergies Allergy/AdvReac Type Severity Reaction Status Date / Time Penicillins AdvReac Hives Verified 05/05/18 17:12 Sulfa (Sulfonamide AdvReac Hives Verified 05/05/18 17:12 Antibiotics) Home Medications: Home Medications Cyclobenzaprine TAB* [Flexeril 10 MG TAB*] 5 mg PO BID PRN 07/22/18 [History Confirmed 07/22/18] PMH/Surg Hx/FS Hx/Imm Hx Previously Healthy: Yes Endocrine/Hematology History: Denies: Hx Anticoagulant Therapy, Hx Diabetes, Hx Thyroid Disease Cardiovascular History: Denies: Hx Hypertension, Hx Pacemaker/ICD Respiratory History: Reports: Hx Asthma - prn inhaler Denies: Hx Chronic Obstructive Pulmonary Disease (COPD), Hx Lung Cancer, Hx Pneumonia, Hx Pulmonary Embolism GI History: Denies: Hx Gall Bladder Disease, Hx Gastrointestinal Bleed, Hx Ulcer, Hx Urosepsis History: Reports: Other Problems/Disorders - ovarian cyst Denies: Hx Kidney Stones, Hx Renal Disease Sensory History: Reports: Hx Contacts or Glasses - glasses Denies: Hx Hearing Aid Opthamlomology History: Reports: Hx Contacts or Glasses - glasses Neurological History: Reports: Hx Migraine - no meds Denies: Hx Dementia, Hx Seizures, Hx Transient Ischemic Attacks (TIA) Psychiatric History: Reports: Hx Anxiety - no meds, Hx Depression - no meds Denies: Hx Panic Disorder, Hx Schizophrenia, Hx Bipolar Disorder - Surgical History Surgery Procedure, Year, and Place: left elbow fx with hardware at 7yrs old [facility]. bilateral myringotomy as child [facility]. [place] 5[place] [facility] 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 Denies: Hx Clostridium Difficile, Hx Hepatitis, Hx Human Immunodeficiency Virus (HIV), Hx Shingles, Hx Tuberculosis, Hx Known/Suspected VRE, Hx Known/ Suspected VRSA, History Other Infectious Disease, Traveled Outside the [place] in Last 30 Days - Family History Known Family History: Positive: Cardiac Disease, Hypertension, Diabetes, Respiratory Disease - Social History Occupation: Employed Part-time Lives: With Family Alcohol Use: Occasionally Hx Substance Use: No Substance Use Type: Reports: None Hx Tobacco Use: Yes Smoking Status (MU): Former Smoker Type: Cigarettes Amount Used/How Often: 1/2 ppd for 4 yrs Have You Smoked in the Last Year: No Review of Systems Constitutional: Negative Negative: Fever, Chills, Fatigue, Skin Diaphoresis Negative: Palpitations, Chest Pain Negative: Shortness Of Breath, Cough Genitourinary: Negative Positive: no symptoms reported, see HPI Positive: Myalgia Skin: Negative Positive: Weakness, Paresthesia, Numbness Psychological: Normal All Other Systems Reviewed And Are Negative: Yes Physical Exam Triage Information Reviewed: Yes Vital Signs On Initial Exam: Initial Vitals Temp Pulse Resp BP Pulse Ox 98.6 F 92 16 142/78 97 07/22/18 11:28 07/22/18 11:28 07/22/18 11:28 07/22/18 11:28 07/22/18 11:28 Vital Signs Reviewed: Yes Appearance: Positive: Well-Appearing, Well-Nourished Skin: Positive: Warm, Skin Color Reflects Adequate Perfusion Head/Face: Positive: Normal Head/Face Inspection Eyes: Positive: EOMI, OLGA, Conjunctiva Clear Neck: Positive: Supple Respiratory/Lung Sounds: Positive: Clear to Auscultation, Breath Sounds Present Cardiovascular: Positive: RRR, Pulses are Symmetrical in both Upper and Lower Extremities Musculoskeletal: Positive: Normal, Strength/ROM Intact, Other - left scapula pain with radiation to the L neck and arm Neurological: Positive: Sensory/Motor Intact, Speech Normal Psychiatric: Positive: Normal, Affect/Mood Appropriate AVPU Assessment: Alert Diagnostics - Vital Signs Vital Signs Temp Pulse Resp BP Pulse Ox 07/22/18 12:24 98.6 F 92 16 142/78 97 07/22/18 11:28 98.6 F 92 16 142/78 97 - Laboratory Lab Statement: Any lab studies that have been ordered have been reviewed, and results considered in the medical decision making process. Back Pain Course/Dx - Course Course Of Treatment: During questioning, the patient is evaluated for left arm pain. She endorses pain to the left scapular area which radiates up into the left side of the neck and down the arm. Intermittent numbness and tingling. Denies any color or temperature changes to the back or the arm. Denies any pain directly on palpation of cervical or thoracic spine. Continues to be able to abduct and adduct at the shoulder. She endorses "weakness." On physical examination, there is no weakness noted bilaterally to the upper extremities with abduction, abduction, flexion and extension of the shoulder joint as well as the elbow joint. Pulses +2 intact bilaterally. No evidence of numbness or tingling to the ipsilateral arm. Discussed with patient at length, overuse injuries, strains, muscle spasms and patient. I believe this patient has a pinched nerve in the scapula causing numbness and tingling to the arm/hand. This would also cause a feeling of weakness. Discussed heat, excercises and stretches. This does not require an image at this time. Patient agrees to a short course of steroids and ibuprofen as well. She is diagnosed at this time with cervical radiculopathy. - Diagnoses Provider Diagnoses: Cervical radiculopathy Discharge - Sign-Out/Discharge Documenting (check all that apply): Patient Departure Patient Received Moderate/Deep Sedation with Procedure: No - Discharge Plan Condition: Stable Disposition: HOME Prescriptions: predniSONE TAB* [Deltasone TAB*] 50 mg PO DAILY #5 tab MDD 1 Patient Education Materials: Muscle Strain (ED), Peripheral Neuropathy (ED) Referrals: No Primary Care Phys,NOPCP [Primary Care Provider] - Additional Instructions: Prednisone once daily x 5 days- take in the AM Ibuprofen 600 mg 3 times daily, do not take more than 4 days in a row As discussed, get a tennis ball or get a massage for the discomfort Moist heat to the area and gentle stretches will help Follow up with PCP - Billing Disposition and Condition Condition: STABLE Disposition: Home
== END 2018-07-22 12:24 | disposition home or self-care (01) ==
LOC: ED 11:18
DX: M54.12 Radiculopathy, cervical region (principal); Z87.891 Personal history of nicotine dependence; Z88.0 Allergy status to penicillin; Z88.2 Allergy status to sulfonamides
CPT/HCPCS: 99281

== ENCOUNTER 2018-10-21 01:31 | Emergency (ER) | payer BC ==
[2018-10-21 01:56] LABS: Urine Appearance Clear; Urine Bilirubin Negative (Negative); Urine Blood Negative (Negative); Urine Color Straw; Urine Glucose Negative (Negative); Urine Ketones Negative (Negative); Urine Nitrite Negative (Negative); Urine Protein Negative (Negative); Urine Specific Gravity 1.004 (1.010-1.030); Urine Urobilinogen Negative (Negative)
[2018-10-21 02:37] LABS: Albumin 4.2 g/dL (3.2-5.2); Anion Gap 10 mmol/L (2-11); CO2 Carbon Dioxide 20 mmol/L (22-32); Calcium 9.4 mg/dL (8.6-10.3); Chloride 106 mmol/L (101-111); Potassium 3.4 mmol/L (3.5-5.0); Sodium 136 mmol/L (135-145)
[2018-10-21 02:43] LABS: ALT 10 U/L (7-52); AST 14 U/L (13-39); Albumin/Globulin Ratio 1.4 (1-3); Alkaline Phosphatase 74 U/L (34-104); BUN/Creatinine Ratio 16.2 (8-20); Blood Urea Nitrogen 11 mg/dL (6-24); EGFR African American 132.2 (>60); EGFR Non-African American 109.2 (>60); Globulin 3.1 g/dL (2-4); Glucose 101 mg/dL (70-100); Total Protein 7.3 g/dL (6.4-8.9)
[2018-10-21 02:48] LABS: HCG Pregnancy < 0.60 mIU/mL
--- NOTE | 2018-10-21 02:56 | ED ---
Abdominal Pain/Female - HPI Summary HPI Summary: This patient is a 23 year old female presenting to [facility] with a chief complaint of RLQ since 31. Patient states that she was working when the pain began rather suddenly. Patient states that she was asymptomatic all day. The pain is rated 5/10 in severity. Symptoms aggravated by nothing. Symptoms alleviated by nothing. Patient additionally reports vomiting. Patient denies burning with urinary or any urinary symptoms. - History of Current Complaint Chief Complaint: EDAbdPain Stated Complaint: "LOWER RIGHT ABD PAIN" PER PT Time Seen by Provider: 10/21/18 02:49 Hx Obtained From: Patient Hx Last Menstrual Period: [id number] Onset/Duration: Lasting Hours, Still Present Timing: Constant Severity Initially: Severe Severity Currently: Mild Pain Intensity: 6 Pain Scale Used: 0-10 Numeric Location: Discrete At: RLQ Radiates: No Aggravating Factor(s): Nothing Alleviating Factor(s): Nothing Associated Signs and Symptoms: Positive: Negative - urinary symptoms, Vomiting Allergies/Adverse Reactions: Allergies Allergy/AdvReac Type Severity Reaction Status Date / Time Penicillins AdvReac Hives Verified 10/21/18 01:38 Sulfa (Sulfonamide AdvReac Hives Verified 10/21/18 01:38 Antibiotics) PMH/Surg Hx/FS Hx/Imm Hx Previously Healthy: No Endocrine/Hematology History: Denies: Hx Anticoagulant Therapy, Hx Diabetes, Hx Thyroid Disease Cardiovascular History: Denies: Hx Hypertension, Hx Pacemaker/ICD Respiratory History: Reports: Hx Asthma - prn inhaler Denies: Hx Chronic Obstructive Pulmonary Disease (COPD), Hx Lung Cancer, Hx Pneumonia, Hx Pulmonary Embolism GI History: Denies: Hx Gall Bladder Disease, Hx Gastrointestinal Bleed, Hx Ulcer, Hx Urosepsis History: Reports: Other Problems/Disorders - ovarian cyst Denies: Hx Kidney Stones, Hx Renal Disease Sensory History: Reports: Hx Contacts or Glasses - glasses Denies: Hx Hearing Aid Opthamlomology History: Reports: Hx Contacts or Glasses - glasses Neurological History: Reports: Hx Migraine - no meds Denies: Hx Dementia, Hx Seizures, Hx Transient Ischemic Attacks (TIA) Psychiatric History: Reports: Hx Anxiety - no meds, Hx Depression - no meds Denies: Hx Panic Disorder, Hx Schizophrenia, Hx Bipolar Disorder - Surgical History Surgery Procedure, Year, and Place: left elbow fx with hardware at 7yrs old [facility] [place]ringotomy as child [facility]. right 5th finger nailbed [place] [facility] [place] 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 Denies: Hx Clostridium Difficile, Hx Hepatitis, Hx Human Immunodeficiency Virus (HIV), Hx Shingles, Hx Tuberculosis, Hx Known/Suspected VRE, Hx Known/ Suspected VRSA, History Other Infectious Disease, Traveled Outside the [place] in Last 30 Days - Family History Known Family History: Positive: Cardiac Disease, Hypertension, Diabetes, Respiratory Disease - Social History Alcohol Use: Occasionally Hx Substance Use: No Substance Use Type: Reports: None Hx Tobacco Use: Yes Smoking Status (MU): Former Smoker Type: Cigarettes Amount Used/How Often: 1/2 ppd for 4 yrs Have You Smoked in the Last Year: No Review of Systems Negative: Fever Positive: Abdominal Pain, Vomiting Positive: no symptoms reported. Negative: dysuria All Other Systems Reviewed And Are Negative: Yes Physical Exam - Summary Physical Exam Summary: Appearance: Well-appearing, Well-nourished, lying in bed comfortably Skin: Warm, dry, no obvious rash Eyes: sclera anicteric, no conjunctival pallor ENT: mucous membranes moist, pharynx appears normal Neck: Supple, nontender Respiratory: Clear to auscultation, no signs of respiratory distress Cardiovascular: Normal S1, S2. No murmurs. Normal distal pulses in tibial and radial bilaterally. Abdomen: Rlq tenderness without any peritoneal signs Musculoskeletal: Normal, Strength/ROM Intact Neurological: A&Ox3, awake and alert, mentation is normal, speech is fluent and appropriate Psychiatric: affect is normal, does not appear anxious or depressed Triage Information Reviewed: Yes Vital Signs On Initial Exam: Initial Vitals Temp Pulse Resp BP Pulse Ox 98 F 116 17 146/106 98 10/21/18 01:36 10/21/18 01:36 10/21/18 01:36 10/21/18 01:36 10/21/18 01:36 Vital Signs Reviewed: Yes Diagnostics - Vital Signs Vital Signs Temp Pulse Resp BP Pulse Ox 10/21/18 01:36 98 F 116 17 146/106 98 - Laboratory Lab Results: Lab Results 10/21/18 10/21/18 Range/Units 01:45 02:19 Sodium 136 (135-145) mmol/L Potassium 3.4 L (3.5-5.0) mmol/L Chloride 106 (101-111) mmol/L Carbon Dioxide 20 L (22-32) mmol/L Anion Gap 10 (2-11) mmol/L BUN 11 (6-24) mg/dL Creatinine 0.68 (0.51-0.95) mg/dL Est GFR ( Amer) 132.2 (>60) Est GFR (Non-Af Amer) 109.2 (>60) BUN/Creatinine Ratio 16.2 (8-20) Glucose 101 H (70-100) mg/dL Calcium 9.4 (8.6-10.3) mg/dL Total Bilirubin 0.30 (0.2-1.0) mg/dL AST 14 (13-39) U/L ALT 10 (7-52) U/L Alkaline Phosphatase 74 (34-104) U/L Total Protein 7.3 (6.4-8.9) g/dL Albumin 4.2 (3.2-5.2) g/dL Globulin 3.1 (2-4) g/dL Albumin/Globulin Ratio 1.4 (1-3) Lipase 11 (11.0-82.0) U/L Beta HCG, Quant < 0.60 mIU/mL Urine Color Straw Urine Appearance Clear Urine pH 6.0 (5-9) Ur Specific [place] 1.004 L (1.010-1.030) Urine Protein Negative (Negative) Urine Ketones Negative (Negative) Urine Blood Negative (Negative) Urine Nitrate Negative (Negative) Urine Bilirubin Negative (Negative) Urine Urobilinogen Negative (Negative) Ur Leukocyte Esterase Negative (Negative) Urine Glucose Negative (Negative) Result Diagrams: 10/21/18 02:19 10/21/18 02:19 Lab Statement: Any lab studies that have been ordered have been reviewed, and results considered in the medical decision making process. Abdominal Pain Fem Course/Dx - Course Course Of Treatment: This patient is a 23 year old female presenting to [facility] with a chief complaint of RLQ since 31. Patient states that she was working when the pain began rather suddenly. Patient states that she was asymptomatic all day. Bloodwork Obtained. Patient will be discharged with a dx of ovarian cyst. Patient is advised to follow up with PCP in 3 days. The patient is agreeable with this plan. 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 Over the weekend if your symptoms worsen we should see you back. I don't expect your pain to worsen, so if it does that would prompt a more in depth workup. - Billing Disposition and Condition Condition: GOOD Disposition: Home - Attestation Statements Document Initiated by Seda: Yes Documenting Seda: Jovana Dillard Provider For Whom Seda is Documenting (Include Credential): Gibson Jenkins MD Scribcurtis Attestation: Jovana Jimenez, scribed for Gibson Jenkins MD on 10/21/18 at 0617. Scribe Documentation Reviewed: Yes Provider Attestation: The documentation as recorded by the Jovana huggins accurately reflects the service I personally performed and the decisions made by me, Gibson Jenkins MD Status of Scribcurtis Document: Viewed
[2018-10-21 03:00] LABS: ABS Basophils 0.1 10^3/ul (0-0.2); ABS Eosinophils 0.1 10^3/ul (0-0.6); ABS Lymphocytes 2.8 10^3/ul (1.0-4.8); ABS Monocytes 0.7 10^3/ul (0-0.8); ABS Neutrophils 7.4 10^3/ul (1.5-7.7); Eosinophil % 0.9 %; Hematocrit 40 % (35-47); Hemoglobin 13.3 g/dL (12.0-16.0); Lymphocyte % 25.4 %; Mean Corpuscular HGB Conc 34 g/dL (31-36); Mean Corpuscular Hemoglobin 28 pg (27-31); Mean Corpuscular Volume 84 fL (80-97); Nucleated Red Blood Cells % 0.1; Platelet Count Platelets clumped. 10^3/uL (150-450); Red Blood Count 4.74 10^6 /uL (3.70-4.87); Red Cell Distribution Width 14 % (10.5-15); White Blood Count 11.1 10^3/uL (3.5-10.8)
[2018-10-21 03:22] VITALS: BP 136/89
== END 2018-10-21 03:22 | disposition home or self-care (01) ==
LOC: ED 01:31
DX: N83.201 Unspecified ovarian cyst, right side (principal); R10.31 Right lower quadrant pain; Z88.0 Allergy status to penicillin; Z88.2 Allergy status to sulfonamides; Z87.891 Personal history of nicotine dependence; R11.10 Vomiting, unspecified
CPT/HCPCS: 36415; 80053; 81003; 83690; 84702; 85025; 99282

== ENCOUNTER 2019-07-14 23:21 | Emergency (ER) | payer BC ==
[2019-07-14] MEDS ORDERED: NS 0.9% 1000 ML** 1,000 ML IV ONE (23:34)
[2019-07-14] MEDS ORDERED: Ondansetron INJ* 2 MG/ML VIAL IV ONE (23:34)
--- NOTE | 2019-07-14 23:35 | ED ---
Influenza-Like Illness - HPI Summary HPI Summary: Patient complains of dizziness, lightheadedness, increased heart rate, mild SOB and N/V 1 week. Patient denies known fever, cough, sore throat, CP, abdominal pain, change in urine, change in BM, vaginal symptoms. Medical history is asthma. States she has not used her inhaler in 10 years. LMP active at this time. Patient is a vaper. Denies history of blood clots, OCPs, , recent surgery or trauma, history of long travel or immobility. - History of Current Complaint Chief Complaint: EDDysrhythmPalp Time Seen by Provider: 07/14/19 23:31 Hx Obtained From: Patient Onset/Duration: Gradual Onset, Lasting Days Severity: Moderate Associated Signs & Symptoms: Vomiting - Allergy/Home Medications Allergies/Adverse Reactions: Allergies Allergy/AdvReac Type Severity Reaction Status Date / Time Penicillins AdvReac Hives Verified 07/14/19 23:25 Sulfa (Sulfonamide AdvReac Hives Verified 07/14/19 23:25 Antibiotics) Home Medications: Home Medications Diclofenac Potassium 50 mg PO BID PRN 07/15/19 [History Confirmed 07/15/19] PMH/Surg Hx/FS Hx/Imm Hx Endocrine/Hematology History: Denies: Hx Anticoagulant Therapy, Hx Diabetes, Hx Thyroid Disease Cardiovascular History: Denies: Hx Hypertension, Hx Pacemaker/ICD Respiratory History: Reports: Hx Asthma - prn inhaler Denies: Hx Chronic Obstructive Pulmonary Disease (COPD), Hx Lung Cancer, Hx Pneumonia, Hx Pulmonary Embolism GI History: Denies: Hx Gall Bladder Disease, Hx Gastrointestinal Bleed, Hx Ulcer, Hx Urosepsis History: Reports: Other Problems/Disorders - ovarian cyst Denies: Hx Kidney Stones, Hx Renal Disease Sensory History: Reports: Hx Contacts or Glasses - glasses Denies: Hx Hearing Aid Opthamlomology History: Reports: Hx Contacts or Glasses - glasses Neurological History: Reports: Hx Migraine - no meds Denies: Hx Dementia, Hx Seizures, Hx Transient Ischemic Attacks (TIA) Psychiatric History: Reports: Hx Anxiety - no meds, Hx Depression - no meds Denies: Hx Panic Disorder, Hx Schizophrenia, Hx Bipolar Disorder - Surgical History Surgery Procedure, Year, and Place: left elbow f[place] with [place] 7yrs old [facility] [place] [facility] [place] 5th [place]bed [place] [facility] 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 Denies: Hx Clostridium Difficile, Hx Hepatitis, Hx Human Immunodeficiency Virus (HIV), Hx Shingles, Hx Tuberculosis, Hx Known/Suspected VRE, Hx Known/ Suspected VRSA, History Other Infectious Disease, Traveled Outside the [place] in Last 30 Days - Family History Known Family History: Positive: Cardiac Disease, Hypertension, Diabetes, Respiratory Disease - Social History Alcohol Use: Weekly Alcohol Amount: 1 DRINK Hx Substance Use: No Substance Use Type: Reports: None Hx Tobacco Use: Yes Smoking Status (MU): Former Smoker Type: Cigarettes Amount Used/How Often: 1/2 ppd for 4 yrs Have You Smoked in the Last Year: No Review of Systems Constitutional: Negative Eyes: Negative ENT: Negative Cardiovascular: Negative Positive: Shortness Of Breath Positive: Vomiting, Nausea Genitourinary: Negative Musculoskeletal: Negative Skin: Negative Neurological: Negative Psychological: Normal All Other Systems Reviewed And Are Negative: Yes Physical Exam Triage Information Reviewed: Yes Vital Signs On Initial Exam: Initial Vitals Temp Pulse Resp BP Pulse Ox 97.3 F 132 15 138/88 97 07/14/19 23:22 07/14/19 23:22 07/14/19 23:22 07/14/19 23:22 07/14/19 23:22 Vital Signs Reviewed: Yes Appearance: Positive: Well-Appearing Skin: Positive: Warm Head/Face: Positive: Normal Head/Face Inspection Eyes: Positive: Normal ENT: Positive: Normal ENT inspection Neck: Positive: Supple Respiratory/Lung Sounds: Positive: Clear to Auscultation Cardiovascular: Positive: Normal Abdomen Description: Positive: Nontender Musculoskeletal: Positive: Normal Neurological: Positive: Normal Psychiatric: Positive: Normal AVPU Assessment: Alert - [place] Coma Scale Best Eye Response: 4 - Spontaneous Best Motor Response: 6 - Obeys Commands Best Verbal Response: 5 - Oriented Coma Scale Total: 15 Procedures - Sedation Patient Received Moderate/Deep Sedation with Procedure: No Diagnostics - Vital Signs Vital Signs Temp Pulse Resp BP Pulse Ox 07/14/19 23:22 97.3 F 132 15 138/88 97 - Laboratory Result Diagrams: 07/14/19 23:49 07/14/19 23:49 Lab Statement: Any lab studies that have been ordered have been reviewed, and results considered in the medical decision making process. Re-Evaluation - Re-Evaluation First Eval Re-Evaluation Time: 04:50 Comment: I have discussed results with the patient and symptoms are resolved. Discussed symptoms that warrant immediate return to ED Flu Symptom Course/Dx - Course Course Of Treatment: Patient complains of dizziness, lightheadedness, increased heart rate, mild SOB and N/V 1 week. Patient denies known fever, cough, sore throat, CP, abdominal pain, change in urine, change in BM, vaginal symptoms. Medical history is asthma. States she has not used her inhaler in 10 years. LMP active at this time. Patient is a vaper. Denies history of blood clots, OCPs, , recent surgery or trauma, history of long travel or immobility. Patient heart rate of 132 in triage. Vital signs otherwise within normal limits. Labs unremarkable. D-dimer negative. EKG sinus tachycardia, heart rate of 120, no prior on file. - Diagnoses Provider Diagnoses: Tachycardia, Dizziness Discharge ED - Sign-Out/Discharge Documenting (check all that apply): Sign-Out Patient Signing out patient TO: Karis Chavez - Discharge Plan Condition: Stable Disposition: HOME Patient Education Materials: Dizziness (ED), Tachycardia (ED) Referrals: Loretta Shukla MD [Primary Care Provider] - 3 Days Additional Instructions: Please follow up with your primary care physician within three days. Please return to ED for any new or worsening symptoms. - Billing Disposition and Condition Condition: STABLE Disposition: Home
[2019-07-15 00:12] LABS: Hematocrit 39 % (35-47); Hemoglobin 13.5 g/dL (12.0-16.0); Mean Corpuscular HGB Conc 35 g/dL (31-36); Mean Corpuscular Hemoglobin 29 pg (27-31); Mean Corpuscular Volume 82 fL (80-97); Mean Platelet Volume 7.1 fL (7.4-10.4); Platelet Count 205 10^3/uL (150-450); Red Blood Count 4.73 10^6 /uL (3.70-4.87); Red Cell Distribution Width 14 % (10-15); White Blood Count 5.2 10^3/uL (3.5-10.8)
[2019-07-15 00:27] LABS: ALT 64 U/L (7-52); AST 40 U/L (13-39); Albumin 4.2 g/dL (3.2-5.2); Albumin/Globulin Ratio 1.3 (1-3); Alkaline Phosphatase 90 U/L (34-104); Anion Gap 7 mmol/L (2-11); BUN/Creatinine Ratio 17.1 (8-20); Blood Urea Nitrogen 12 mg/dL (6-24); CO2 Carbon Dioxide 24 mmol/L (22-32); Calcium 9.1 mg/dL (8.6-10.3); Chloride 107 mmol/L (101-111); EGFR African American 126.6 (>60); EGFR Non-African American 104.6 (>60); Globulin 3.2 g/dL (2-4); Glucose 114 mg/dL (70-100); Potassium 3.9 mmol/L (3.5-5.0); Sodium 138 mmol/L (135-145); Total Protein 7.4 g/dL (6.4-8.9)
[2019-07-15 00:39] LABS: Influenza A Molecular NEGATIVE (Negative); Influenza B Molecular NEGATIVE (Negative)
[2019-07-15] MEDS ORDERED: NS 0.9% 1000 ML** 1,000 ML IV ONE ×2 (00:47→01:49)
[2019-07-15 01:15] LABS: ABS Eosinophils 0.1 10^3/ul (0-0.6); ABS Lymphocytes 2.9 10^3/ul (1.0-4.8); ABS Monocytes 0.5 10^3/ul (0-0.8); ABS Neutrophils 1.7 10^3/ul (1.5-7.7); Eosinophil % 1.2 %; Lymphocyte % 56.2 %; Nucleated Red Blood Cells % 0.2
[2019-07-15 01:53] LABS: Urine Appearance Cloudy; Urine Bilirubin Negative (Negative); Urine Blood Negative (Negative); Urine Color Yellow; Urine Glucose Negative (Negative); Urine Ketones Negative (Negative); Urine Nitrite Negative (Negative); Urine Protein Negative (Negative); Urine Specific Gravity 1.015 (1.010-1.030); Urine Urobilinogen Negative (Negative)
[2019-07-15] MEDS ORDERED: Meclizine TAB* 12.5 MG PO ONE (02:02)
[2019-07-15 02:13] LABS: Urine Benzodiazepine Screen None Detected (None Detect); Urine Opiates Screen None Detected (None Detect)
[2019-07-15] MEDS ORDERED: ALPRAZolam TAB* 0.5 MG PO ONE (02:33)
[2019-07-15 02:50] LABS: Magnesium 2.1 mg/dL (1.9-2.7)
[2019-07-15 02:57] LABS: HCG Pregnancy < 0.60 mIU/mL
[2019-07-15 03:03] LABS: TSH (Thyroid Stimulating Horm) 1.46 mcIU/mL (0.34-5.60)
--- NOTE | 2019-07-15 03:12 | ED ---
Progress - Progress Note Progress Note: This patient was signed out from Doc to Dr. Chavez at shift change at 0230, pending disposition, awaiting blood work. TSH is negative and test is negative. The patients condition is stable, heartrate is lowered. patient will be discharged home with Dx of tachycardia and dizziness. rest, fluids, follow up with PCP, follow up sooner for any worsening symptoms. Re-Evaluation - Re-Evaluation First Eval Re-Evaluation Time: 04:50 Comment: I have discussed results with the patient and symptoms are resolved. Discussed symptoms that warrant immediate return to ED Course/Dx - Course Course Of Treatment: This patient was signed out from Doc to Dr. Chavez at shift change at 0230, pending disposition, awaiting blood work. TSH is negative and test is negative. The patients condition is stable and will be discharged home with Dx of tachycardia and dizziness. - Diagnoses Provider Diagnoses: Tachycardia, Dizziness Discharge ED - Sign-Out/Discharge Documenting (check all that apply): Patient Departure - Discharge - Discharge Plan Condition: Stable Disposition: HOME Patient Education Materials: Dizziness (ED), Tachycardia (ED) Referrals: Loretta Shukla MD [Primary Care Provider] - 3 Days Additional Instructions: Please follow up with your primary care physician within three days. Please return to ED for any new or worsening symptoms. - Billing Disposition and Condition Condition: STABLE Disposition: Home - Attestation Statements Document Initiated by Seda: Yes Documenting Scribe: Wendy Funk Provider For Whom Seda is Documenting (Include Credential): Dr. Karis Chavez MD Scribe Attestation: Wendy Jimenez scribed for Dr. Karis Chavez MD on 07/15/19 at 0602. Scribe Documentation Reviewed: Yes Provider Attestation: The documentation as recorded by the Wendy huggins accurately reflects the service I personally performed and the decisions made by me, Dr. Karis Chavez MD Status of Scribe Document: Viewed
[2019-07-15 05:10] VITALS: BP 134/88
== END 2019-07-15 05:10 | disposition home or self-care (01) ==
LOC: ED 23:21
DX: R42 Dizziness and giddiness (principal); R00.0 Tachycardia, unspecified; R11.2 Nausea with vomiting, unspecified; R06.02 Shortness of breath; Z32.02 Encounter for pregnancy test, result negative; J45.909 Unspecified asthma, uncomplicated; Z88.0 Allergy status to penicillin; Z88.2 Allergy status to sulfonamides; Z87.891 Personal history of nicotine dependence
CPT/HCPCS: 36415; 80053; 80307; 81003; 83735; 84443; 84702; 85025; 85060; 85379; 86140; 93005; 96361; 96374; 99283; A9270-GY; G0480; J2405

== ENCOUNTER 2019-08-05 22:02 | Emergency (ER) | payer BC ==
[2019-08-05] MEDS ORDERED: NS 0.9% 1000 ML** 1,000 ML IV ONE (22:27)
[2019-08-05] MEDS ORDERED: Ondansetron INJ* 2 MG/ML VIAL IV ONE (22:42)
[2019-08-05 22:49] LABS: ABS Lymphocytes 2.2 10^3/ul (1.0-4.8); ABS Monocytes 0.3 10^3/ul (0-0.8); ABS Neutrophils 2.1 10^3/ul (1.5-7.7); Hematocrit 38 % (35-47); Hemoglobin 12.8 g/dL (12.0-16.0); Lymphocyte % 46.4 %; Mean Corpuscular HGB Conc 34 g/dL (31-36); Mean Corpuscular Hemoglobin 28 pg (27-31); Mean Corpuscular Volume 84 fL (80-97); Platelet Count 241 10^3/uL (150-450); Red Blood Count 4.51 10^6 /uL (3.70-4.87); Red Cell Distribution Width 14 % (10-15); White Blood Count 4.7 10^3/uL (3.5-10.8)
[2019-08-05 23:02] LABS: Albumin 4.1 g/dL (3.2-5.2); Calcium 9.1 mg/dL (8.6-10.3); Magnesium 1.9 mg/dL (1.9-2.7); Potassium 3.8 mmol/L (3.5-5.0); Total Bilirubin 0.3 mg/dL (0.2-1.0)
[2019-08-05 23:08] LABS: Albumin/Globulin Ratio 1.3 (1-3); BUN/Creatinine Ratio 14.1 (8-20); EGFR African American 124.6 (>60); EGFR Non-African American 102.9 (>60); Globulin 3.1 g/dL (2-4); Total Protein 7.2 g/dL (6.4-8.9)
[2019-08-05] MEDS ORDERED: Iohexol 350* (CONTRAST) 500 ML MDV IV ONE (23:17)
[2019-08-05 23:24] LABS: T4, Total 10.65 mcg/dL (6.09-12.23)
[2019-08-05 23:27] LABS: TSH (Thyroid Stimulating Horm) 0.77 mcIU/mL (0.34-5.60)
[2019-08-05 23:28] LABS: Free T3 4.8 pg/mL (2.5-3.9)
--- NOTE | 2019-08-05 23:28 | ED ---
Palpitations / Dysrhythmia - HPI Summary HPI Summary: 24 year old female presents with intermittent palpitations for the past months. She states the palpitations happen out of nowhere and last couple hours. States her heart rate was 150 when she checked it earlier. States it is causes her shortness breath. States she denies any chest pain currently. She admits to nausea but no vomiting. No fever or cough. no recent travel. no pain or swelling in calf muscles. no fam hx of blood clots. - History of Current Complaint Chief Complaint: EDDysrhythmPalp Time Seen by Provider: 08/05/19 22:19 - Allergy/Home Medications Allergies/Adverse Reactions: Allergies Allergy/AdvReac Type Severity Reaction Status Date / Time Penicillins AdvReac Hives Verified 08/05/19 22:05 Sulfa (Sulfonamide AdvReac Hives Verified 08/05/19 22:05 Antibiotics) PMH/Surg Hx/FS Hx/Imm Hx Endocrine/Hematology History: Denies: Hx Anticoagulant Therapy, Hx Diabetes, Hx Thyroid Disease Cardiovascular History: Denies: Hx Hypertension, Hx Pacemaker/ICD Respiratory History: Reports: Hx Asthma - prn inhaler Denies: Hx Chronic Obstructive Pulmonary Disease (COPD), Hx Lung Cancer, Hx Pneumonia, Hx Pulmonary Embolism GI History: Denies: Hx Gall Bladder Disease, Hx Gastrointestinal Bleed, Hx Ulcer, Hx Urosepsis History: Reports: Other Problems/Disorders - ovarian cyst Denies: Hx Kidney Stones, Hx Renal Disease Sensory History: Reports: Hx Contacts or Glasses - glasses Denies: Hx Hearing Aid Opthamlomology History: Reports: Hx Contacts or Glasses - glasses Neurological History: Reports: Hx Migraine - no meds Denies: Hx Dementia, Hx Seizures, Hx Transient Ischemic Attacks (TIA) Psychiatric History: Reports: Hx Anxiety - no meds, Hx Depression - no meds Denies: Hx Panic Disorder, Hx Schizophrenia, Hx Bipolar Disorder - Surgical History Surgery Procedure, Year, and Place: left elbow fx with hardware at 7yrs old [facility]. [place] [facility] [place] [facility] 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 Denies: Hx Clostridium Difficile, Hx Hepatitis, Hx Human Immunodeficiency Virus (HIV), Hx Shingles, Hx Tuberculosis, Hx Known/Suspected VRE, Hx Known/ Suspected VRSA, History Other Infectious Disease, Traveled Outside the [place] in Last 30 Days - Family History Known Family History: Positive: Cardiac Disease, Hypertension, Diabetes, Respiratory Disease - Social History Alcohol Use: Occasionally Alcohol Amount: 1 DRINK Hx Substance Use: No Substance Use Type: Reports: None Hx Tobacco Use: Yes Smoking Status (MU): Former Smoker Type: Cigarettes Amount Used/How Often: 1/2 ppd for 4 yrs Have You Smoked in the Last Year: No Review of Systems Negative: Fever Positive: Palpitations. Negative: Chest Pain Positive: Shortness Of Breath Positive: Nausea. Negative: Vomiting All Other Systems Reviewed And Are Negative: Yes Physical Exam Triage Information Reviewed: Yes Vital Signs On Initial Exam: Initial Vitals Temp Pulse Resp BP Pulse Ox 98.6 F 128 18 140/100 99 08/05/19 22:04 08/05/19 22:04 08/05/19 22:04 08/05/19 22:04 08/05/19 22:04 Vital Signs Reviewed: Yes Appearance: Positive: Well-Appearing Skin: Positive: Warm, Dry Head/Face: Positive: Normal Head/Face Inspection Eyes: Positive: Normal, EOMI, OLGA, Conjunctiva Clear ENT: Positive: Pharynx normal, TMs normal Respiratory/Lung Sounds: Positive: Clear to Auscultation, Breath Sounds Present Cardiovascular: Positive: Tachycardia Musculoskeletal: Positive: Normal Neurological: Positive: Normal Psychiatric: Positive: Normal Procedures - Sedation Patient Received Moderate/Deep Sedation with Procedure: No Diagnostics - Vital Signs Vital Signs Temp Pulse Resp BP Pulse Ox 08/05/19 22:16 119 98 08/05/19 22:04 98.6 F 128 18 140/100 99 - Laboratory Lab Results: Lab Results 08/05/19 08/05/19 08/05/19 Range/Units 22:42 22:43 22:43 WBC 4.7 (3.5-10.8) 10^3/uL RBC 4.51 (3.70-4.87) 10^6 /uL Hgb 12.8 (12.0-16.0) g/dL Hct 38 (35-47) % MCV 84 (80-97) fL MCH 28 (27-31) pg MCHC 34 (31-36) g/dL RDW 14 (10-15) % Plt Count 241 (150-450) 10^3/uL MPV 7.0 L (7.4-10.4) fL Neut % (Auto) 44.4 % Lymph % (Auto) 46.4 % [place] % (Auto) 7.5 % Eos % (Auto) 1.0 % Baso % (Auto) 0.7 % Absolute Neuts (auto) 2.1 (1.5-7.7) 10^3/ul Absolute Lymphs (auto) 2.2 (1.0-4.8) 10^3/ul Absolute Monos (auto) 0.3 (0-0.8) 10^3/ul Absolute Eos (auto) 0.0 (0-0.6) 10^3/ul Absolute Basos (auto) 0.0 (0-0.2) 10^3/ul Absolute Nucleated RBC 0.0 10^3/ul Nucleated RBC % 0.0 D-Dimer, Quantitative 260 H (Less Than 230) ng/mL Sodium 138 (135-145) mmol/L Potassium 3.8 (3.5-5.0) mmol/L Chloride 107 (101-111) mmol/L Carbon Dioxide 23 (22-32) mmol/L Anion Gap 8 (2-11) mmol/L BUN 10 (6-24) mg/dL Creatinine 0.71 (0.51-0.95) mg/dL Est GFR ( Amer) 124.6 (>60) Est GFR (Non-Af Amer) 102.9 (>60) BUN/Creatinine Ratio 14.1 (8-20) Glucose 126 H (70-100) mg/dL Lactic Acid (0.5-2.0) mmol/L Calcium 9.1 (8.6-10.3) mg/dL Magnesium 1.9 (1.9-2.7) mg/dL Total Bilirubin 0.30 (0.2-1.0) mg/dL AST 20 (13-39) U/L ALT 37 (7-52) U/L Alkaline Phosphatase 79 (34-104) U/L Troponin I 0.00 (<0.03) ng/mL Total Protein 7.2 (6.4-8.9) g/dL Albumin 4.1 (3.2-5.2) g/dL Globulin 3.1 (2-4) g/dL Albumin/Globulin Ratio 1.3 (1-3) TSH 0.77 (0.34-5.60) mcIU/mL Thyroxine (T4) 10.65 (6.09-12.23) mcg/dL Free T3 Pending 08/05/19 Range/Units 22:43 WBC (3.5-10.8) 10^3/uL RBC (3.70-4.87) 10^6 /uL Hgb (12.0-16.0) g/dL Hct (35-47) % MCV (80-97) fL MCH (27-31) pg MCHC (31-36) g/dL RDW (10-15) % Plt Count (150-450) 10^3/uL MPV (7.4-10.4) fL Neut % (Auto) % Lymph % (Auto) % [place] % (Auto) % Eos % (Auto) % Baso % (Auto) % Absolute Neuts (auto) (1.5-7.7) 10^3/ul Absolute Lymphs (auto) (1.0-4.8) 10^3/ul Absolute Monos (auto) (0-0.8) 10^3/ul Absolute Eos (auto) (0-0.6) 10^3/ul Absolute Basos (auto) (0-0.2) 10^3/ul Absolute Nucleated RBC 10^3/ul Nucleated RBC % D-Dimer, Quantitative (Less Than 230) ng/mL Sodium (135-145) mmol/L Potassium (3.5-5.0) mmol/L Chloride (101-111) mmol/L Carbon Dioxide (22-32) mmol/L Anion Gap (2-11) mmol/L BUN (6-24) mg/dL Creatinine (0.51-0.95) mg/dL Est GFR ( Amer) (>60) Est GFR (Non-Af Amer) (>60) BUN/Creatinine Ratio (8-20) Glucose (70-100) mg/dL Lactic Acid 2.3 H* (0.5-2.0) mmol/L Calcium (8.6-10.3) mg/dL Magnesium (1.9-2.7) mg/dL Total Bilirubin (0.2-1.0) mg/dL AST (13-39) U/L ALT (7-52) U/L Alkaline Phosphatase (34-104) U/L Troponin I (<0.03) ng/mL Total Protein (6.4-8.9) g/dL Albumin (3.2-5.2) g/dL Globulin (2-4) g/dL Albumin/Globulin Ratio (1-3) TSH (0.34-5.60) mcIU/mL Thyroxine (T4) (6.09-12.23) mcg/dL Free T3 Result Diagrams: 08/05/19 22:43 08/05/19 22:43 Lab Statement: Any lab studies that have been ordered have been reviewed, and results considered in the medical decision making process. - EKG No standard instances Cardiac Rate: Tachycardia EKG Rhythm: Sinus Tachycardia Summary of EKG Findings: sinus tachycardia Re-Evaluation - Re-Evaluation First Eval Re-Evaluation Time: 23:28 Change: Improved Comment: nausea improved, having chest pain Course/Dx - Course Course Of Treatment: 24 year old female presents with intermittent palpitations for the past months. She states the palpitations happen out of nowhere and last couple hours. States her heart rate was 150 when she checked it earlier. States it is causes her shortness breath. States she denies any chest pain currently. She admits to nausea but no vomiting. No fever or cough. no recent travel. no pain or swelling in calf muscles. no fam hx of blood clots. On exam is in sinus tachycardia. lungs CTA. wbc normal. electrolytes normal. TSH is normal but free T3 is a little elevated. she was given fluids and is in sinus rhythm again. d-dimer elevated so got CTA. CTA was normal. patient has followed up with primary and is suppose to be getting an echo and holter monitor before potentially started propranolol. Discussed that will hold on starting meds at this time until get holter and echo. Patient understands and agrees with plan. - Diagnoses Differential Diagnosis/HQI/PQRI: Positive: Hypokalemia, Paroxymal SVT, Pulmonary Embolism Provider Diagnoses: Tachycardia Discharge ED - Sign-Out/Discharge Documenting (check all that apply): Patient Departure - Discharge Plan Condition: Good Disposition: HOME Patient Education Materials: Tachycardia (ED) Referrals: Loretta hSukla MD [Primary Care Provider] - Marco Antonio Adair MD [Medical Doctor] - Additional Instructions: follow up with cardiology follow up with primary return to ED if develop any new or worsening symptoms - Billing Disposition and Condition Condition: GOOD Disposition: Home
[2019-08-06 00:03] VITALS: BP 155/102
== END 2019-08-06 01:14 | disposition home or self-care (01) ==
LOC: ED 22:02
DX: R00.0 Tachycardia, unspecified (principal); R00.1 Bradycardia, unspecified; F41.9 Anxiety disorder, unspecified; R06.02 Shortness of breath; Z87.891 Personal history of nicotine dependence; Z88.0 Allergy status to penicillin; Z88.2 Allergy status to sulfonamides
CPT/HCPCS: 36415; 71275; 80053; 83605; 83735; 84436; 84443; 84481; 84484; 85025; 85379; 93005; 96374; 99282; J2405

== ENCOUNTER 2019-08-08 10:22 | Emergency (ER) | payer BC ==
--- OUTSIDE RECORDS SUMMARY | 2019-08-08 10:31 | XMS REPORT | Continuity of Care Document ---
:1995 External Reference #:[id number] Author Name Ksenia Posey Care Team Providers Name Role Phone Mehul Grewal MD - Pediatric Care Team Information Classroom Assistant Infectious Diseases Loretta Shukla MD - Care Team Information Classroom Assistant Family Medicine Problems Active Problems Provider Date Headache Onset: Social History Type Date Description Comments Sex Unknown ETOH Use Denies alcohol use Tobacco Use Start: Unknown Patient has never smoked Exercise Type/Frequency Does not exercise Allergies, Adverse Reactions, Alerts Active Allergies Reaction Severity Comments Date Sulfa Antibiotics 03/06/2015 Penicillin 03/06/2015 Medications Active Medications SIG Qnty Indications Ordering Provider Date Albuterol Sulfate 2 puffs inhaled Helene Tijerina, 03/06/2015 every 2 hours as M.D. needed sob Albuterol Sulfate 2 puffs inhaled Unknown every 2 hours as (5mg/ML) 0.5% needed sob Nebulizer Immunizations Description No Information Available Vital Signs Date Vital Result Comment 11/19/2015 8:07am Height 67 inches 5'7" Weight 245.00 lb Heart Rate 95 /min BP Systolic 150 mmHg BP Diastolic 81 mmHg BMI (Body Mass Index) 38.4 kg/m2 Blood Pressure Percentile 99 % Height Percentile 86 % Weight Percentile >97th 03/20/2015 11:22am Height 67 inches 5'7" Weight 240.00 lb Pain Level 2 BMI (Body Mass Index) 37.6 kg/m2 Height Percentile 86 % Weight Percentile >97th Results Description No Information Available Procedures Description No Information Available Medical Devices Description No Information Available Encounters Description No Information Available Assessments Description No Information Available Plan of Treatment Future Appointment(s):08/17/2019 10:00 am - Brendan Varma DO F[facility] at [facility]11/19/2015 - Barrett Castellano M.D.[id number] Other synovitis and tenosynovitis, left shoulderNew Therapy:Physical TherapyFollow up:Follow up: PRN after 2-3 months, she can call. See physical therapy Ice after aggravations and advil if [id number] Bursitis of left [id number] Other shoulder lesions, left shoulder Functional Status Description No Information Available Mental Status Description No Information Available Referrals Description No Information Available
--- NOTE | 2019-08-08 10:43 | ED ---
Palpitations / Dysrhythmia - HPI Summary HPI Summary: Pt. is a 24 y.o female who presents to the ER for chest pain and tachycardia x 1 that started today at 0430. Pt. states she has been dealing with tachycardia over the last month. She has been seen in our ED 2 other times for tachycardia. Pt. scheduled to see cardiology at the end of the month. Pt. states today she developed a sharp pressure in the center of chest that started today while lying down. Denies recent fever, cough, sore throat, abd. pain, N/V. Past hx of obesity, asthma. Denies excessive ETOH use, smoking, drug use. Pt. notes she stopped caffeine intake last month. Sxs are moderate in severity. NO current modifying factors. - History of Current Complaint Chief Complaint: EDChestPainROMI Time Seen by Provider: 08/08/19 10:43 Hx Obtained From: Patient - Allergy/Home Medications Allergies/Adverse Reactions: Allergies Allergy/AdvReac Type Severity Reaction Status Date / Time Penicillins AdvReac Hives Verified 08/08/19 10:32 Sulfa (Sulfonamide AdvReac Hives Verified 08/08/19 10:32 Antibiotics) Home Medications: Home Medications Cyclobenzaprine TAB* [Flexeril 10 MG TAB*] 10 mg PO DAILY PRN 07/22/18 [History Confirmed 08/08/19] Albuterol HFA INHALER* [Ventolin HFA Inhaler*] 2 puff INH Q4H PRN 05/04/19 [ History Confirmed 08/08/19] Acetaminophen TAB* [Tylenol TAB*] 325 mg PO Q4H PRN 08/08/19 [History Confirmed 08/08/19] PMH/Surg Hx/FS Hx/Imm Hx Previously Healthy: Yes Endocrine/Hematology History: Denies: Hx Anticoagulant Therapy, Hx Diabetes, Hx Thyroid Disease Cardiovascular History: Denies: Hx Hypertension, Hx Pacemaker/ICD Respiratory History: Reports: Hx Asthma - prn inhaler Denies: Hx Chronic Obstructive Pulmonary Disease (COPD), Hx Lung Cancer, Hx Pneumonia, Hx Pulmonary Embolism GI History: Denies: Hx Gall Bladder Disease, Hx Gastrointestinal Bleed, Hx Ulcer, Hx Urosepsis History: Reports: Other Problems/Disorders - ovarian cyst Denies: Hx Kidney Stones, Hx Renal Disease Sensory History: Reports: Hx Contacts or Glasses - glasses Denies: Hx Hearing Aid Opthamlomology History: Reports: Hx Contacts or Glasses - glasses Neurological History: Reports: Hx Migraine - no meds Denies: Hx Dementia, Hx Seizures, Hx Transient Ischemic Attacks (TIA) Psychiatric History: Reports: Hx Anxiety - no meds, Hx Depression - no meds Denies: Hx Panic Disorder, Hx Schizophrenia, Hx Bipolar Disorder - Surgical History Surgery Procedure, Year, and Place: left elbow fx with hardware at 7yrs old [facility] [place]. bilateral myringotomy as child [facility] [place]. right 5th finger nailbed repair 2016 [facility] [place]. 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 Denies: Hx Clostridium Difficile, Hx Hepatitis, Hx Human Immunodeficiency Virus (HIV), Hx Shingles, Hx Tuberculosis, Hx Known/Suspected VRE, Hx Known/ Suspected VRSA, History Other Infectious Disease, Traveled Outside the in Last 30 Days - Family History Known Family History: Positive: Cardiac Disease, Hypertension, Diabetes, Respiratory Disease - Social History Occupation: Employed Full-time Lives: With Family Alcohol Use: Occasionally Alcohol Amount: 1 DRINK Hx Substance Use: No Substance Use Type: Reports: None Hx Tobacco Use: Yes Smoking Status (MU): Former Smoker Type: Cigarettes Amount Used/How Often: 1/2 ppd for 4 yrs Have You Smoked in the Last Year: No Review of Systems - ROS Summary Review of Systems Summary: Cyclobenzaprine TAB* [Flexeril 10 MG TAB*] 10 mg PO DAILY PRN 07/22/18 [History Confirmed 08/08/19] Albuterol HFA INHALER* [Ventolin HFA Inhaler*] 2 puff INH Q4H PRN 05/04/19 [ History Confirmed 08/08/19] Acetaminophen TAB* [Tylenol TAB*] 325 mg PO Q4H PRN 08/08/19 [History Confirmed 08/08/19] Constitutional: Negative Negative: Fever Eyes: Negative ENT: Negative Positive: Chest Pain Respiratory: Negative Gastrointestinal: Negative Genitourinary: Negative Skin: Negative Neurological/Mental Status: Negative All Other Systems Reviewed And Are Negative: Yes Physical Exam Triage Information Reviewed: Yes Vital Signs On Initial Exam: Initial Vitals Temp Pulse Resp BP Pulse Ox 98.2 F 105 16 161/88 100 08/08/19 10:24 08/08/19 10:24 08/08/19 10:24 08/08/19 10:24 08/08/19 10:24 Vital Signs Reviewed: Yes Appearance: Positive: Well-Appearing - Pt. sitting up in bed in NAD. Father present. Skin: Positive: Warm, Dry Eyes: Positive: Normal, EOMI Neck: Positive: Supple Respiratory/Lung Sounds: Positive: Clear to Auscultation, Breath Sounds Present. Negative: Rales, Rhonchi, Wheezes Cardiovascular: Positive: Normal, RRR Abdomen Description: Positive: Other: - Obese. Soft and nontender throughout. Neurological: Positive: Normal, Alert, Oriented to Person Place, Time Psychiatric: Positive: Affect/Mood Appropriate Procedures - Sedation Patient Received Moderate/Deep Sedation with Procedure: No Diagnostics - Vital Signs Vital Signs Temp Pulse Resp BP Pulse Ox 08/08/19 10:24 98.2 F 105 16 161/88 100 - Laboratory Result Diagrams: 08/08/19 10:33 08/08/19 10:33 Lab Statement: Any lab studies that have been ordered have been reviewed, and results considered in the medical decision making process. Course/Dx - Course Course Of Treatment: Pt. presenting with chest pain and palps. Afebrile and well appearing. HR initially slightly elevated and then improved to the 80's-90' s. ECG done at 1026 shows a sinus tachycardia of 113bpm, normal axis, no ST elevation or depression, appropriate intervals. Blood work and CXR negative for acute findings. Results discussed. Pt. resting comfortably. Results discussed. Pt. will be dc home to [facility] with cardio as scheduled for further evaluation. pt. understands and agrees with plan. - Diagnoses Differential Diagnosis/HQI/PQRI: Positive: Hypokalemia, Panic Disorder, Paroxymal SVT Provider Diagnoses: Atypical chest pain Discharge ED - Sign-Out/Discharge Documenting (check all that apply): Patient Departure - Discharge Plan Condition: Good Disposition: HOME Patient Education Materials: Chest Pain (ED) Referrals: Loretta Shukla MD [Primary Care Provider] - Additional Instructions: Follow up with cardiology as scheduled Can tylenol for pain as directed Increase fluids and rest Return to ER if symptoms change or worsen - Billing Disposition and Condition Condition: GOOD Disposition: Home - Attestation Statements Provider Attestation: I was available for consultation for this patient. I did not evaluate the patient or participate in any medical decision making or disposition decisions unless I am specifically named in the chart as having consulted on the patient. If I have consulted on the patient, please see my own ED note on the patient encounter. Jean Paul Gupta MD
[2019-08-08 10:45] LABS: ABS Eosinophils 0.1 10^3/ul (0-0.6); ABS Lymphocytes 3.2 10^3/ul (1.0-4.8); ABS Monocytes 0.6 10^3/ul (0-0.8); ABS Neutrophils 1.7 10^3/ul (1.5-7.7); Eosinophil % 1.5 %; Hematocrit 40 % (35-47); Hemoglobin 13.7 g/dL (12.0-16.0); Lymphocyte % 57.7 %; Mean Corpuscular HGB Conc 34 g/dL (31-36); Mean Corpuscular Hemoglobin 29 pg (27-31); Mean Corpuscular Volume 83 fL (80-97); Mean Platelet Volume 7.2 fL (7.4-10.4); Nucleated Red Blood Cells % 0.2; Platelet Count 237 10^3/uL (150-450); Red Blood Count 4.82 10^6 /uL (3.70-4.87); Red Cell Distribution Width 14 % (10-15); White Blood Count 5.6 10^3/uL (3.5-10.8)
[2019-08-08] MEDS ORDERED: Ibuprofen TAB* 800 MG PO ONE (10:59)
[2019-08-08 11:02] LABS: INR 1.02 (0.82-1.09)
[2019-08-08] MEDS ORDERED: Acetaminophen TAB* 325 MG PO ONE (11:02)
[2019-08-08 11:17] LABS: ALT 42 U/L (7-52); AST 30 U/L (13-39); Albumin 4.2 g/dL (3.2-5.2); Albumin/Globulin Ratio 1.2 (1-3); Alkaline Phosphatase 91 U/L (34-104); Anion Gap 7 mmol/L (2-11); BUN/Creatinine Ratio 11.8 (8-20); Blood Urea Nitrogen 8 mg/dL (6-24); CO2 Carbon Dioxide 23 mmol/L (22-32); Calcium 9.1 mg/dL (8.6-10.3); Chloride 106 mmol/L (101-111); EGFR African American 130.9 (>60); EGFR Non-African American 108.2 (>60); Globulin 3.4 g/dL (2-4); Glucose 94 mg/dL (70-100); Magnesium 2.2 mg/dL (1.9-2.7); Potassium 3.9 mmol/L (3.5-5.0); Sodium 136 mmol/L (135-145); Total Protein 7.6 g/dL (6.4-8.9)
[2019-08-08 11:21] LABS: HCG Pregnancy < 0.60 mIU/mL
[2019-08-08 12:56] VITALS: BP 114/72
== END 2019-08-08 12:58 | disposition home or self-care (01) ==
LOC: ED 10:22
DX: R07.89 Other chest pain (principal); J45.909 Unspecified asthma, uncomplicated; F41.9 Anxiety disorder, unspecified; F32.9 Major depressive disorder, single episode, unspecified; Z87.891 Personal history of nicotine dependence; Z88.0 Allergy status to penicillin; Z88.2 Allergy status to sulfonamides
CPT/HCPCS: 36415; 71045; 80053; 83735; 84484; 84702; 85025; 85610; 93005; 99282; A9270-GY

== ENCOUNTER 2019-09-26 15:18 | Emergency (ER) | payer BC ==
[2019-09-26] MEDS ORDERED: Morphine 4 MG/ML VIAL (1 ml) 4 MG/ML VIAL IV ONE (16:12)
[2019-09-26] MEDS ORDERED: NS 0.9% 1000 ML** 1,000 ML IV ONE (16:12)
[2019-09-26] MEDS ORDERED: Ketorolac INJ* 30 MG/ML 1 ML VIAL IV PUSH ONE (16:12)
[2019-09-26] MEDS ORDERED: Ondansetron INJ* 2 MG/ML VIAL IV ONE (16:12)
--- NOTE | 2019-09-26 16:17 | ED ---
GI/ HPI - HPI Summary HPI Summary: This patient is a 24 y/o female presenting to [facility] c/o right sided abdominal pain for the past 1.5 weeks. Patient reports she came to the ED on 09/21/19 and was told she has an ovarian cyst on the right side. She notes today she began to feel dizzy with symptoms of nausea and vomiting. Patient states she feels "swollen" on the right side and has pelvic pain with urination. Denies fever, vaginal bleeding, abnormal vaginal discharge. She has been taking Tylenol with no relief. Patient called her doctor's office and was recommended to come to the ED. LMP: 3 weeks ago. Patient reports she had an 8-9 cm ovarian cyst removed 2 years ago. Denies any other surgeries. Denies hx of ovarian torsion, kidney stones, appendicitis, hernias. Allergic to Penicillin and Sulfa. Patient states she was given Toradol with good effect last time she was in the ED. - History of Current Complaint Chief Complaint: EDAbdPain Time Seen by Provider: 09/26/19 16:04 Stated Complaint: VOMITING AND DIZZINESS PER PT Hx Obtained From: Patient Hx Last Menstrual Period: [id number] Onset/Duration: Started Days Ago, Still Present Timing: Lasting Days Severity: Moderate Pain Intensity: 7 Location of Pain: Other - right side abdomen Associated Signs and Symptoms: Positive: Nausea, Vomiting, Abdominal Pain. Negative: Fever Additional Signs & Symptoms: Negative: Vaginal Bleeding, Vaginal Discharge Aggravating Factor(s): Nothing Alleviating Factor(s): Nothing - Additional Pertinent History Primary Care Physician: [id number] - Allergy/Home Medications Allergies/Adverse Reactions: Allergies Allergy/AdvReac Type Severity Reaction Status Date / Time Penicillins AdvReac Hives Verified 09/26/19 15:24 Sulfa (Sulfonamide AdvReac Hives Verified 09/26/19 15:24 Antibiotics) Home Medications: Home Medications Albuterol HFA INHALER* [Ventolin HFA Inhaler*] 2 puff INH Q4H PRN 05/04/19 [ History Confirmed 09/26/19] Acetaminophen TAB* [Tylenol TAB*] 325 mg PO Q4H PRN 08/08/19 [History Confirmed 09/26/19] celeCOXIB CAP* [CeleBREX CAP*] 100 mg PO BID 09/14/19 [History Confirmed 04/08/ 20] Metoprolol Succinate XL TAB* [Toprol XL TAB*] 25 mg PO DAILY 09/26/19 [History Confirmed 09/26/19] PMH/Surg Hx/FS Hx/Imm Hx Endocrine/Hematology History: Denies: Hx Anticoagulant Therapy, Hx Diabetes, Hx Thyroid Disease Cardiovascular History: Denies: Hx Hypertension, Hx Pacemaker/ICD Respiratory History: Reports: Hx Asthma - prn inhaler Denies: Hx Chronic Obstructive Pulmonary Disease (COPD), Hx Lung Cancer, Hx Pneumonia, Hx Pulmonary Embolism GI History: Denies: Hx Gall Bladder Disease, Hx Gastrointestinal Bleed, Hx Ulcer, Hx Urosepsis History: Reports: Other Problems/Disorders - ovarian cyst Denies: Hx Kidney Stones, Hx Renal Disease Sensory History: Reports: Hx Contacts or Glasses - glasses Denies: Hx Hearing Aid Opthamlomology History: Reports: Hx Contacts or Glasses - glasses Neurological History: Reports: Hx Migraine - no meds Denies: Hx Dementia, Hx Seizures, Hx Transient Ischemic Attacks (TIA) Psychiatric History: Reports: Hx Anxiety - no meds, Hx Depression - no meds Denies: Hx Panic Disorder, Hx Schizophrenia, Hx Bipolar Disorder - Surgical History Surgical History: Yes Surgery Procedure, Year, and Place: left elbow fx with hardware at 7yrs old [facility]. bilateral myringotomy as child [facility]. right 5th finger nailbed repair 2016 [facility] [place]. 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 Denies: Hx Clostridium Difficile, Hx Hepatitis, Hx Human Immunodeficiency Virus (HIV), Hx Shingles, Hx Tuberculosis, Hx Known/Suspected VRE, Hx Known/ Suspected VRSA, History Other Infectious Disease, Traveled Outside the [place] in Last 30 Days - Family History Known Family History: Positive: Cardiac Disease, Hypertension, Diabetes, Respiratory Disease - Social History Alcohol Use: None Alcohol Amount: 1 DRINK Hx Substance Use: No Substance Use Type: Reports: None Hx Tobacco Use: Yes Smoking Status (MU): Former Smoker Type: Cigarettes Amount Used/How Often: 1/2 ppd for 4 yrs Have You Smoked in the Last Year: No Review of Systems Negative: Fever Positive: Abdominal Pain, Vomiting, Nausea Positive: pain - with urination. Negative: other - NEGATIVE: vaginal bleeding, vaginal discharge Neurological/Mental Status: Other - POSITIVE: dizziness All Other Systems Reviewed And Are Negative: Yes Physical Exam - Summary Physical Exam Summary: Constitutional: Obese, patient in moderate pain distress Skin: Warm, Dry HENT: Normocephalic; Atraumatic Eyes: Conjunctiva normal Neck: Musculoskeletal ROM normal neck. (-) JVD, (-) Stridor, (-) Tracheal deviation Cardio: Rhythm regular, rate normal, Heart sounds normal; Intact distal pulses; The pedal pulses are 2+ and symmetric. Radial pulses are 2+ and symmetric. (-) Murmur Pulmonary/Chest wall: Effort normal. (-) Respiratory distress, (-) Wheezes, (-) Rales Abd: Soft, right lower quadrant tenderness, (-) Distension, (-) Guarding, (-) Rebound Musculoskeletal: (-) Edema Lymph: (-) Cervical adenopathy Neuro: Alert, Oriented x3 Psych: Mood and affect Normal Triage Information Reviewed: Yes Vital Signs On Initial Exam: Initial Vitals Temp Pulse Resp BP Pulse Ox 99.3 F 122 16 151/98 99 09/26/19 15:21 09/26/19 15:21 09/26/19 15:21 09/26/19 15:21 09/26/19 15:21 Vital Signs Reviewed: Yes Procedures - Sedation Patient Received Moderate/Deep Sedation with Procedure: No Diagnostics - Vital Signs Vital Signs Temp Pulse Resp BP Pulse Ox 09/26/19 15:21 99.3 F 122 16 151/98 99 - Laboratory Result Diagrams: 09/26/19 16:26 09/26/19 16:26 Lab Statement: Any lab studies that have been ordered have been reviewed, and results considered in the medical decision making process. - Ultrasound No standard instances Ultrasound Interpretation Completed By: Radiologist Summary of Ultrasound Findings: Pelvic/Transvaginal US IMPRESSION: Mild interval decrease in size of RIGHT ovary hemorrhagic cyst measuring up to 3.1 cm maximum dimension on the current exam compared with 3.6 cm previously. Normal vascular flow documented to the surrounding ovarian tissue. Correlate with clinical assessment as ultrasound may be normal in setting of low grade partial or intermittent ovarian torsion. Dr. Jaquez has reviewed this report. GIGU Course/Dx - Course Assessment/Plan: Patient is a 24 y/o female presenting to [facility] c/o right sided abdominal pain for the past 1.5 weeks. Patient reports she came to the ED on 09/06 and was told she has an ovarian cyst on the right side. She notes today she began to feel dizzy with symptoms of nausea and vomiting. Lab results are unremarkable. Pelvic/Transvaginal US shows Mild interval decrease in size of RIGHT ovary hemorrhagic cyst measuring up to 3.1 cm maximum dimension on the current exam compared with 3.6 cm previously. Normal vascular flow documented to the surrounding ovarian tissue. Correlate with clinical assessment as ultrasound may be normal in setting of low grade partial or intermittent ovarian torsion. In the ED course the patient was given IV fluids, Toradol, Morphine, Zofran. Patient will be discharged home and is to follow up tomorrow with her gynecology appointment as scheduled. - Diagnoses Provider Diagnoses: Ovarian cyst Discharge ED - Sign-Out/Discharge Documenting (check all that apply): Patient Departure - Discharge home - Discharge Plan Condition: Stable Disposition: HOME Patient Education Materials: Ovarian Cyst (ED) Referrals: Loretta Shukla MD [Primary Care Provider] - Additional Instructions: RETURN TO THE EMERGENCY DEPARTMENT FOR CHANGING OR WORSENING SYMPTOMS. Follow up tomorrow with your gynecology appointment as scheduled. - Billing Disposition and Condition Condition: STABLE Disposition: Home - Attestation Statements Document Initiated by Scribe: Yes Documenting Scribe: Elyssa Hebert Provider For Whom Seda is Documenting (Include Credential): Asher Jaquez DO [employer] Attestation: Elyssa Jimenez scribed for Asher Jaquez DO on 09/27/19 at 1219. Scribe Documentation Reviewed: Yes Provider Attestation: The documentation as recorded by the Elyssa huggins accurately reflects the service I personally performed and the decisions made by , Asher Jaquez DO Status of Sc[employer] Document: Viewed
[2019-09-26 16:34] LABS: ABS Lymphocytes 2.2 10^3/ul (1.0-4.8); ABS Monocytes 0.6 10^3/ul (0-0.8); ABS Neutrophils 3.4 10^3/ul (1.5-7.7); Eosinophil % 0.7 %; Hematocrit 37 % (35-47); Lymphocyte % 35.4 %; Mean Corpuscular HGB Conc 35 g/dL (31-36); Mean Corpuscular Hemoglobin 29 pg (27-31); Mean Corpuscular Volume 82 fL (80-97); Mean Platelet Volume 6.9 fL (7.4-10.4); Nucleated Red Blood Cells % 0.1; Platelet Count 272 10^3/uL (150-450); Red Blood Count 4.57 10^6 /uL (3.70-4.87); Red Cell Distribution Width 13 % (10-15); White Blood Count 6.3 10^3/uL (3.5-10.8)
[2019-09-26 16:51] LABS: Anion Gap 7 mmol/L (2-11); Blood Urea Nitrogen 13 mg/dL (6-24); C Reactive Protein 7.13 mg/L (<8.01); CO2 Carbon Dioxide 23 mmol/L (22-32); Calcium 9.4 mg/dL (8.6-10.3); Chloride 108 mmol/L (101-111); EGFR African American 145.6 (>60); EGFR Non-African American 120.4 (>60); Glucose 96 mg/dL (70-100); Potassium 3.9 mmol/L (3.5-5.0); Sodium 138 mmol/L (135-145)
[2019-09-26 16:58] LABS: HCG Pregnancy < 0.60 mIU/mL
[2019-09-26 18:20] VITALS: BP 110/72
== END 2019-09-26 18:28 | disposition home or self-care (01) ==
LOC: ED 15:18
DX: N83.201 Unspecified ovarian cyst, right side (principal); R10.9 Unspecified abdominal pain; R11.2 Nausea with vomiting, unspecified; R42 Dizziness and giddiness; J45.909 Unspecified asthma, uncomplicated; F41.9 Anxiety disorder, unspecified; Z87.891 Personal history of nicotine dependence; Z86.14 Personal history of Methicillin resistant Staphylococcus aureus infection; Z79.899 Other long term (current) drug therapy; Z88.0 Allergy status to penicillin
CPT/HCPCS: 36415; 76830; 76856; 80048; 84702; 85025; 86140; 96361; 96374; 96375; 99283; J1885; J2270; J2405

== ENCOUNTER 2020-02-23 11:57 | Observation (INO) ==
[2020-02-23] MEDS ORDERED: NS 0.9% 1000 ml BAG 1,000 ML IV ONE ×2 (13:20→16:08)
[2020-02-23 13:53] LABS: ABS Lymphocytes 1.9 10^3/ul (1.0-4.8); ABS Monocytes 0.6 10^3/ul (0-0.8); ABS Neutrophils 4.9 10^3/ul (1.5-7.7); Eosinophil % 0.3 %; Hematocrit 40 % (35-47); Hemoglobin 13.7 g/dL (12.0-16.0); Lymphocyte % 25.7 %; Mean Corpuscular HGB Conc 34 g/dL (31-36); Mean Corpuscular Hemoglobin 30 pg (27-31); Mean Corpuscular Volume 87 fL (80-97); Mean Platelet Volume 7.4 fL (7.4-10.4); Platelet Count 343 10^3/uL (150-450); Red Blood Count 4.64 10^6 /uL (3.70-4.87); Red Cell Distribution Width 13 % (10-15); White Blood Count 7.4 10^3/uL (3.5-10.8)
[2020-02-23] MEDS ORDERED: Ondansetron 4 mg VIAL 2 MG/ML 2 ml VIAL IV ONE ×2 (13:54→17:49)
[2020-02-23 14:10] LABS: ALT 26 U/L (7-52); AST 15 U/L (13-39); Albumin 4.2 g/dL (3.2-5.2); Albumin/Globulin Ratio 1.2 (1-3); Alkaline Phosphatase 71 U/L (34-104); Anion Gap 8 mmol/L (2-11); BUN/Creatinine Ratio 16.9 (8-20); Blood Urea Nitrogen 12 mg/dL (6-24); C Reactive Protein 14.47 mg/L (<8.01); CO2 Carbon Dioxide 26 mmol/L (22-32); Calcium 9.6 mg/dL (8.6-10.3); Chloride 104 mmol/L (101-111); EGFR African American 123.4 (>60); Globulin 3.5 g/dL (2-4); Glucose 110 mg/dL (70-100); Magnesium 1.8 mg/dL (1.9-2.7); Potassium 3.5 mmol/L (3.5-5.0); Sodium 138 mmol/L (135-145); Total Protein 7.7 g/dL (6.4-8.9)
[2020-02-23 14:52] LABS: TSH Ultra Thyroid Stim Horm 0.52 mcIU/mL (0.34-5.60)
[2020-02-23] MEDS ORDERED: Lorazepam PYXIS KEY PRN (15:27)
[2020-02-23] MEDS ORDERED: LORazepam 2 mg VIAL 1 ml IV PUSH ONE (15:27)
[2020-02-23 16:55] LABS: Urine Appearance Clear; Urine Bilirubin Negative (Negative); Urine Blood 3+ (Negative); Urine Color Straw; Urine Glucose Negative (Negative); Urine Ketones 1+ (Negative); Urine Nitrite Negative (Negative); Urine Protein Negative (Negative); Urine Specific Gravity 1.005 (1.010-1.030); Urine Urobilinogen Negative (Negative)
[2020-02-23 16:56] LABS: Urine Bacteria Absent (Absent); Urine Red Blood Cell 1+(3-5/hpf) (Absent); Urine Squamous Epithelial Cell Present (Absent); Urine White Blood Cell Trace(0-5/hpf) (Absent)
[2020-02-23] MEDS ORDERED: Prochlorperazine 5 mg/ml 2 ml VIAL (10 mg) IV ONE (17:46)
[2020-02-23] MEDS ORDERED: diPHENhydraMINE IV 50 MG/ML 1 ml VIAL (BENADRYL) IV ONE (17:46)
[2020-02-23] MEDS ORDERED: NS 0.9% 1000 ml BAG 1,000 ML IV SCH (19:15)
[2020-02-23 19:40] LABS: Lipase 16 U/L (11.0-82.0)
[2020-02-23] MEDS ORDERED: Prochlorperazine 5 mg/ml 2 ml VIAL (10 mg) IM PRN (20:49)
[2020-02-23] MEDS: Pantoprazole VIAL 40 MG VIAL IV SCH (21:41)
[2020-02-23] MEDS: Ondansetron 4 mg VIAL 2 MG/ML 2 ml VIAL IV PRN (22:22)
[2020-02-23 22:59] LABS: HCG Pregnancy < 0.60 mIU/mL
[2020-02-24] MEDS: Ondansetron 4 mg VIAL 2 MG/ML 2 ml VIAL IV PRN ×4 (03:19→20:09)
[2020-02-24] MEDS: Prochlorperazine 5 mg/ml 2 ml VIAL (10 mg) IV PRN (06:19)
[2020-02-24] MEDS: Pantoprazole VIAL 40 MG VIAL IV SCH (07:49)
[2020-02-24] MEDS: Lactated Ringers 1000 ml BAG 1,000 ML IV SCH ×2 (11:21→23:10)
[2020-02-24] MEDS ORDERED: Midazolam 10 mg/10 ml VIAL 1 mg/ml 10 ml VIAL (10 mg) ONE (13:11)
[2020-02-24] MEDS ORDERED: fentaNYL 100 mcg/2 ml 50 MCG/ML VIAL ONE (13:11)
[2020-02-24] MEDS ORDERED: diPHENhydraMINE IV 50 MG/ML 1 ml VIAL (BENADRYL) ONE (13:11)
[2020-02-25] MEDS: Pantoprazole VIAL 40 MG VIAL IV SCH (07:21)
[2020-02-25] MEDS: Ondansetron 4 mg VIAL 2 MG/ML 2 ml VIAL IV PRN (07:29)
[2020-02-25 09:49] LABS: ABS Lymphocytes 1.6 10^3/ul (1.0-4.8); ABS Monocytes 0.4 10^3/ul (0-0.8); ABS Neutrophils 3.3 10^3/ul (1.5-7.7); Eosinophil % 0.8 %; Hematocrit 38 % (35-47); Lymphocyte % 29.7 %; Mean Corpuscular HGB Conc 34 g/dL (31-36); Mean Corpuscular Hemoglobin 30 pg (27-31); Mean Corpuscular Volume 87 fL (80-97); Mean Platelet Volume 7.4 fL (7.4-10.4); Platelet Count 299 10^3/uL (150-450); Red Blood Count 4.39 10^6 /uL (3.70-4.87); Red Cell Distribution Width 13 % (10-15); White Blood Count 5.3 10^3/uL (3.5-10.8)
[2020-02-25] MEDS: Prochlorperazine 5 mg/ml 2 ml VIAL (10 mg) IV PRN (09:57)
[2020-02-25 10:05] LABS: Albumin 3.9 g/dL (3.2-5.2); Albumin/Globulin Ratio 1.3 (1-3); BUN/Creatinine Ratio 8.8 (8-20); Calcium 9.2 mg/dL (8.6-10.3); EGFR Non-African American 131.4 (>60); Potassium 3.9 mmol/L (3.5-5.0); Total Bilirubin 0.4 mg/dL (0.2-1.0); Total Protein 6.9 g/dL (6.4-8.9)
[2020-02-25 11:16] VITALS: BP 139/73
== END 2020-02-25 15:40 | disposition home or self-care (01) ==
LOC: MED 11:57 → ED 11:57 → MED 21:10
PROVIDERS: ADMIT Internal Medicine; ATTEND Internal Medicine

== ENCOUNTER 2021-02-09 16:33 | Inpatient (IN) ==
[2021-02-09] MEDS ORDERED: Dinoprostone 10 MG VAG.SUPP VAGINAL ONE (18:38)
[2021-02-09] MEDS ORDERED: Buffered Lidocaine 1% SYRIN 1 ml INTRADERM ONE (18:38)
[2021-02-09] MEDS ORDERED: Lactated Ringers 1000 ml BAG 1,000 ML IV ONE (18:38)
[2021-02-09] MEDS ORDERED: Lactated Ringers 1000 ml BAG 1,000 ML IV SCH (19:00)
[2021-02-09 20:52] LABS: ABS Lymphocytes 2.3 10^3/ul (1.0-4.8); ABS Monocytes 0.7 10^3/ul (0-0.8); ABS Neutrophils 6.6 10^3/ul (1.5-7.7); Eosinophil % 0.3 %; Hematocrit 34 % (35-47); Hemoglobin 11.3 g/dL (12.0-16.0); Lymphocyte % 23.7 %; Mean Corpuscular HGB Conc 33 g/dL (31-36); Mean Corpuscular Hemoglobin 26 pg (27-31); Mean Corpuscular Volume 78 fL (80-97); Mean Platelet Volume 8.5 fL (7.4-10.4); Platelet Count 339 10^3/uL (150-450); Red Blood Count 4.38 10^6 /uL (3.70-4.87); Red Cell Distribution Width 15 % (10-15); White Blood Count 9.7 10^3/uL (3.5-10.8)
[2021-02-09 21:18] LABS: Albumin 3.3 g/dL (3.2-5.2); Calcium 8.6 mg/dL (8.6-10.3); EGFR African American 135.5 (>60); Globulin 3.4 g/dL (2-4); Total Bilirubin 0.2 mg/dL (0.2-1.0); Total Protein 6.7 g/dL (6.4-8.9); Uric Acid 4.7 mg/dL (2.3-6.6)
[2021-02-09 21:20] LABS: Urine Benzodiazepine Screen None Detected (None Detect); Urine Cannabinoids Screen None Detected (None Detect); Urine Opiates Screen None Detected (None Detect)
[2021-02-10] MEDS ORDERED: Nalbuphine 10 MG/ML 1 ML VIAL IV ONE (00:04)
[2021-02-10] MEDS ORDERED: Promethazine INJ(RESTRICTED) 25 MG/ML 1 ml VIAL IV ONE (00:05)
[2021-02-10] MEDS ORDERED: OBEPIDURAL 250 ML EPIDURAL ONE (06:18)
[2021-02-10] MEDS ORDERED: Lactated Ringers 1000 ml BAG 1,000 ML IV ONE (06:57)
[2021-02-10] MEDS ORDERED: Phenylephrine 40 mcg/mL 10mL (400mcg) SYRINGE IV PUSH PRN (06:57)
[2021-02-10] MEDS ORDERED: EPHEDrine (Pressors) 50 MG/ML VIAL IV PUSH PRN (06:57)
[2021-02-10] MEDS ORDERED: Sodium Citrate/Citric Acid LIQ 15 ML UDC PO PRN (06:57)
[2021-02-10] MEDS ORDERED: Lactated Ringers 1000 ml BAG 500 ML IV PRN (06:57)
[2021-02-10] MEDS ORDERED: Lactated Ringers 1000 ml BAG 1,000 ML IV SCH ×2 (07:00→18:00)
[2021-02-10] MEDS ORDERED: OBEPIDURAL 250 ML EPIDURAL SCH (07:00)
[2021-02-10 07:52] LABS: Urine Appearance Clear; Urine Bilirubin Negative (Negative); Urine Blood Negative (Negative); Urine Color Yellow; Urine Glucose Negative (Negative); Urine Ketones 1+ (Negative); Urine Nitrite Negative (Negative); Urine Protein Negative (Negative); Urine Specific Gravity 1.019 (1.002-1.030); Urine Urobilinogen Negative (Negative)
[2021-02-10] MEDS: DOXYLAMINE PO SCH (10:17)
[2021-02-10] MEDS: DOXYLAMINE SUCCINATE10 PO SCH (10:17)
[2021-02-10] MEDS: [UNRECOGNIZED DRUG - OTHER] PO SCH (10:17)
[2021-02-10] MEDS: PYRIDOXINE PO SCH (10:17)
[2021-02-10] MEDS ORDERED: Oxytocin in LR 20 UNITS/1,000 ML BAG IVPB SCH ×2 (11:00→18:00)
[2021-02-10] MEDS ORDERED: Ondansetron 4 mg VIAL 2 MG/ML 2 ml VIAL IV PRN (15:28)
[2021-02-10] MEDS ORDERED: Witch Hazel PAD JAR TOPICAL PRN (17:35)
[2021-02-10] MEDS ORDERED: Dibucaine 1% OINT 28.35 GM TUBE PR PRN (17:35)
[2021-02-11] MEDS: PYRIDOXINE PO SCH (01:39)
[2021-02-11] MEDS: DOXYLAMINE SUCCINATE10 PO SCH (01:39)
[2021-02-11] MEDS: DOXYLAMINE PO SCH (01:39)
[2021-02-11] MEDS: [UNRECOGNIZED DRUG - OTHER] PO SCH (01:39)
[2021-02-11 06:11] LABS: Hematocrit 26 % (35-47); Hemoglobin 8.8 g/dL (12.0-16.0); Mean Corpuscular HGB Conc 34 g/dL (31-36); Mean Corpuscular Hemoglobin 27 pg (27-31); Mean Corpuscular Volume 79 fL (80-97); Mean Platelet Volume 8.2 fL (7.4-10.4); Platelet Count 263 10^3/uL (150-450); Red Blood Count 3.34 10^6 /uL (3.70-4.87); Red Cell Distribution Width 15 % (10-15); White Blood Count 9.1 10^3/uL (3.5-10.8)
[2021-02-11 06:50] LABS: ABS Basophils 0.1 10^3/ul (0-0.2); ABS Eosinophils 0.1 10^3/ul (0-0.6); ABS Lymphocytes 2.1 10^3/ul (1.0-4.8); ABS Monocytes 0.8 10^3/ul (0-0.8); ABS Neutrophils 6.1 10^3/ul (1.5-7.7); Lymphocyte % 22.6 %; Nucleated Red Blood Cells % 0.1
[2021-02-12 08:24] VITALS: BP 128/70
== END 2021-02-12 13:45 | disposition home or self-care (01) | DRG 560 ==
LOC: MCHOBOUT 16:33 → MCHOB 17:55
PROVIDERS: ADMIT Obstetrics & Gynecology; ATTEND Obstetrics & Gynecology